=== PATIENT | female | born 2000 | race Caucasian/White ===

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

== ENCOUNTER 2019-02-27 07:36 | Outpatient (CLI) | payer SELFPAY ==
--- NOTE | 2019-02-27 08:24 | DI.US_ITS ---
SYMPTOM/DIAGNOSIS: CHRONIC NAUSEA R11.0, EPIGASTRIC PAIN R10.13 ABDOMINAL ULTRASOUND: The aorta and vena cava are intact. The liver is top limits of normal in size at 16.7 cm, and is mildly echogenic consistent with fatty infiltration. The gallbladder is intact. There are no gallstones or ductal dilatation. The pancreas is unremarkable. The spleen is mildly enlarged at 10.8 cm The kidneys are unremarkable. The right kidney measures 10.7 cm and the left kidney 10.7 cm. There is no evidence of free fluid. SUMMARY: Findings consistent with fatty infiltration of the liver and mild hepatosplenomegaly.
== END 2019-02-27 07:56 ==
PROVIDERS: PCP Nurse Practitioner; Visit Provider Family Medicine
DX: R11.0 Nausea (principal); R10.13 Epigastric pain; K76.1 Chronic passive congestion of liver; R16.2 Hepatomegaly with splenomegaly, not elsewhere classified
CPT/HCPCS: 76700

== ENCOUNTER 2019-03-09 02:13 | Outpatient (CLI) | payer BC, SELFPAY ==
--- NOTE | 2019-03-09 12:30 | DI.NM_ITS ---
SYMPTOMS/DIAGNOSIS: CHRONIC NAUSEA, R11.0, ABDOMINAL PAIN X 2 YEARS CCK-HEPATOBILIARY SCAN: 4.8 mCi of technetium 99m mebrofenin were administered IV. There is normal hepatic uptake. There is prompt excretion into the gallbladder. The small bowel is also promptly visualized. 1.7 mcg of Kinevac was administered over 45 minutes via IV drip. The gallbladder ejection fraction is calculated at 64%, in the normal range. IMPRESSION: Normal CCK-hepatobiliary scan.
== END 2019-03-09 02:33 ==
PROVIDERS: PCP Nurse Practitioner; Visit Provider Family Medicine
DX: R11.0 Nausea (principal); R10.9 Unspecified abdominal pain
CPT/HCPCS: 78227

== ENCOUNTER 2019-07-27 17:43 | Outpatient (REF) | payer MEDICAID, SELFPAY | END 2019-07-27 18:03 | LOC: LBN 17:43 | PROVIDERS: PCP Nurse Practitioner; Visit Provider Obstetrics & Gynecology | DX: R69 Illness, unspecified (principal) | CPT/HCPCS: 87491; 87591 ==

== ENCOUNTER 2019-08-03 01:46 | Outpatient (CLI) | payer MEDICAID, SELFPAY ==
--- NOTE | 2019-08-03 12:52 | DI.US_ITS ---
EXAM: US PELVIS TRANSVAGINAL CLINICAL HISTORY: Irregular bleeding,92.6 TECHNIQUE: Ultrasound performed using standard protocol. COMPARISON: No exams were available for comparison FINDINGS: The uterus measures 5.8 cm in length, 3.0 cm in height and 3.7 cm in width with an endometrial stripe thickness of 2.9 mm. A small quantity of free fluid is identified in the cervix. The right ovary m easures 2.3 x 1.4 x 1.2 cm. The left ovary was not visualized. The left kidney measures 10.7 x 4.7 x 4.4 cm, the right kidney measures 10.9 x 4.1 x 4.9 cm. IMPRESSION: Small quantity of fluid is noted in the cervix. The examination is otherwise unremarkable with note m deepa of nonvisualization of the left ovary.
== END 2019-08-03 02:06 ==
PROVIDERS: PCP Nurse Practitioner; Visit Provider Obstetrics & Gynecology
DX: N92.6 Irregular menstruation, unspecified (principal); N88.8 Other specified noninflammatory disorders of cervix uteri
CPT/HCPCS: 76830; 76856

== ENCOUNTER 2020-07-04 16:54 | Outpatient (REF) | payer MEDICAID, SELFPAY ==
[2020-07-04 23:53] LABS: C-Reactive Protein 1.37 mg/dL (0.0-0.3)
[2020-07-05 00:08] LABS: ESR 13 mm/hr (0-20)
[2020-07-06 17:36] LABS: Rheumatoid Factor <8.6 IU/mL (<12.0)
[2020-07-07 09:11] LABS: Vitamin D 25 Total 33.9 ng/ml (30-100)
[2020-07-07 09:13] LABS: Cyclic Citrullinated Peptide <2.5 U/mL (<5.0)
[2020-07-07 14:41] LABS: ANA Interpretation Negative (Negative)
== END 2020-07-04 17:14 ==
LOC: NCHCN 16:54
PROVIDERS: PCP Nurse Practitioner; Visit Provider Nurse Practitioner Family
DX: G89.29 Other chronic pain (principal); F41.9 Anxiety disorder, unspecified; F32.9 Major depressive disorder, single episode, unspecified
CPT/HCPCS: 82306; 85652; 86003; 86200; 86038; 86140; 86431

== ENCOUNTER 2020-07-08 14:13 | Outpatient (REF) | payer MEDICAID, SELFPAY ==
[2020-07-10 16:46] LABS: Chlamydia Result Negative (Negative); GC Result Negative (Negative)
== END 2020-07-08 14:33 ==
LOC: NCHCN 14:13
PROVIDERS: PCP Nurse Practitioner; Visit Provider Nurse Practitioner Family
DX: Z11.3 Encounter for screening for infections with a predominantly sexual mode of transmission (principal)
CPT/HCPCS: 87491; 87591

== ENCOUNTER 2020-09-11 18:40 | Outpatient (REF) | payer MEDICAID, SELFPAY | END 2020-09-11 19:00 | LOC: NCHCN 18:40 | PROVIDERS: PCP Nurse Practitioner Family; Visit Provider Nurse Practitioner Family | DX: N89.8 Other specified noninflammatory disorders of vagina (principal) | CPT/HCPCS: 87480; 87510; 87660 ==

== ENCOUNTER 2021-02-01 13:14 | Outpatient (CLI) | payer MEDICAID, SELFPAY ==
[2021-02-01 13:47] LABS: Bacteria Many HPF (Negative); C & S Indicated? No/Sq. Contamination; Casts Negative LPF (Negative); Crystals Negative HPF (Negative); Epithelial Cells Many HPF (Negative); Mucus Negative (Negative); Other Cells Few Renal (Negative); RBC 0-2 HPF (0-2); WBC Negative HPF (0-5)
== END 2021-02-01 13:15 | disposition home or self-care (01) ==
LOC: LBN 13:15
PROVIDERS: PCP Nurse Practitioner Family; Visit Provider Family Medicine
DX: R30.0 Dysuria (principal)
CPT/HCPCS: 81015

== ENCOUNTER 2021-03-13 15:21 | Outpatient (REF) | payer MEDICAID, SELFPAY | END 2021-03-13 15:22 | disposition home or self-care (01) | LOC: NCHCN 15:21 | PROVIDERS: PCP Nurse Practitioner Family; Visit Provider Nurse Practitioner Family | DX: R30.0 Dysuria (principal) | CPT/HCPCS: 87086 ==

== ENCOUNTER 2021-04-20 09:54 | Outpatient (REF) | payer MEDICAID, SELFPAY ==
--- NOTE | 2021-04-20 09:15 | PAPFT_PTH ---
PATIENT: Marlen Mendez [facility] U#:[id number] AGE/SX: 20/F ROOM: RE04/20/[address]: Thea Bobo : 2000 BED: DIS: 04/20/2021 SPEC #: [id number] RECD: 04/20/21 13:04 STATUS: BEHZAD BURTON #: [id number] GE: 04/20/21 09:[address]: Thea Bobo DEPT: [facility] Cytology RECD BY: Antonia Booker Tissues: 1 - CX/ENDOCX FOR PAP SMEARS Procedures: PAP THIN PREP/UVM Screening Comments: [id number] (CHLAMYDIA/GC)
[2021-04-21 14:01] LABS: Chlamydia Result Negative (Negative); GC Result Negative (Negative)
== END 2021-04-20 09:55 | disposition home or self-care (01) ==
LOC: NCHCN 09:54
PROVIDERS: PCP Nurse Practitioner Family; Visit Provider Nurse Practitioner Family
DX: Z12.4 Encounter for screening for malignant neoplasm of cervix (principal); Z01.419 Encounter for gynecological examination (general) (routine) without abnormal findings
CPT/HCPCS: 87491; 87591; 88142

== ENCOUNTER 2021-11-20 18:29 | Outpatient (REF) | payer MEDICAID, SELFPAY | END 2021-11-20 18:30 | disposition home or self-care (01) | LOC: NCHCN 18:29 | PROVIDERS: PCP Nurse Practitioner Family; Visit Provider Nurse Practitioner Family | DX: R39.15 Urgency of urination (principal) | CPT/HCPCS: 87077; 87086; 87186 ==

== ENCOUNTER 2021-12-04 12:18 | Outpatient (REF) | payer MEDICAID, SELFPAY ==
--- OUTSIDE RECORDS SUMMARY | 2021-12-04 12:21 | XMS_ITS ---
:2000 Author Care Team Providers Name Role Phone MARIANA BAH Primary Care Provider [phone] [facility] MEDICAL RECORDS OTHER [phone] Allergies Code Code System Name Reaction Severity Status Onset 6698 RxNorm Meclizine Other Mild to Active ? Moderate Medications Name Status Start Date Stop Date ? ? buspirone 7.5 mg tablet Active ? Not avai lable Take 1 tablet twice a day by oral route. citalopram 40 mg tablet Active ? Not avai lable Take 1 tablet every day by oral route. clindamycin phosphate 1 % topical solution Active ? Not available APPLY A THIN LAYER TO THE AFFECTED AREA(S) BY TOPICAL ROUTE 2 T IMES PER DAY Flonase Allergy Relief 50 mcg/actuation nasal spray,suspension A ctive ? Not available [place] 2 sprays every day by intranasal route. norgestimate 0.25 mg-ethinyl estradiol 35 mcg (21) tablet Active ? Not available Take 1 tablet every day by oral route. pantoprazole 20 mg tablet,delayed release Active ? Not available Take 1 tablet every day by oral route. Previfem Active ? Not available ProAir HFA 90 mcg/actuation aerosol inhaler Active ? Not available Inhale 2 puffs every 4 hours by inhalation route. Vitamin B-12 1,000 mcg tablet Active ? N ot available Take 1 tablet every day by oral route. Vitamin D Active ? Not available 2,000 units daily PO Zofran 4 mg tablet Active ? Not available Take 1 tablet every 8 hours by oral route. Problems Name Status Onset Date Source ? Chronic Pain Active 11/28/2020 ? Fibromyalgia Active 11/28/2020 ? Restless Legs Active 12/03/2020 ? Severe Obesity Active ? History Hypersomnia Active ? History Obstructive Sleep Apnea Syndrome Active ? ? Hallucinations Active ? History Snoring Active ? History Procedures None recorded. Results Lab Results None recorded. Past Encounters 12/03/2020 Obstructive Sleep Apnea Syndrome; Restle ss Legs Evelina Mendez NP: [address] [place] [phone], Ph. Social History Tobacco Smoking Status Never Smoker Vaccine List None recorded. Plan of Care Reminders Provider Appointments None ? ? recorded. Lab None ? ? recorded. Referral None ? ? recorded. Procedures None ? ? recorded. Surgeries None ? ? recorded. Imaging None ? ? recorded. Vitals 12/03/2020 02:30PM New Patient 44 Height Weight BMI 162.56 cm 127.01 kg 48.1 kg/m2 11/01/2017 Height Weight Blood Pressure 162.56 cm 108.41 kg 120/64 mm[Hg]
== END 2021-12-04 12:19 | disposition home or self-care (01) ==
LOC: NCHCN 12:18
PROVIDERS: PCP Nurse Practitioner Family; Visit Provider Nurse Practitioner Family
DX: R39.15 Urgency of urination (principal)
CPT/HCPCS: 87480; 87510; 87660

== ENCOUNTER 2021-12-08 17:26 | Outpatient (REF) | payer MEDICAID, SELFPAY | END 2021-12-08 17:27 | disposition home or self-care (01) | LOC: NCHCN 17:26 | PROVIDERS: PCP Nurse Practitioner Family; Visit Provider Nurse Practitioner Family | DX: R39.15 Urgency of urination (principal) | CPT/HCPCS: 87086 ==

== ENCOUNTER 2021-12-15 18:05 | Outpatient (REF) | payer MEDICAID, SELFPAY ==
[2021-12-15 15:40] LABS: HCT 43.1 % (36.0-46.0); HGB 13.3 g/dL (11.2-15.7); MCH 25.1 pg (27.0-33.0); MCHC 30.9 % (32.0-36.0); MCV 81.5 fL (80-95); MPV 10.9 fL (8.0-11.0); Platelet Count 382 10^3/uL (130-400); RBC 5.29 10^6/uL (3.93-5.22); RDW 13.9 % (11.7-14.6); RDW-SD 41.2 fL; WBC 9.27 10^3/uL (4.4-10.8)
[2021-12-15 16:14] LABS: ALT 57 U/L (14-59); AST 25 U/L (15-37); Albumin 3.7 g/dL (3.4-5.0); Alkaline Phosphatase 92 U/L (46-116); Anion Gap 7.6 mmol/L (3-11); BUN 16 mg/dL (7-18); Bilirubin, Total 0.4 mg/dL (0.2-1.0); CO2 29.4 mmol/L (21.0-32.0); CREATININE 0.9 mg/dL (0.55-1.02); Calcium 9.2 mg/dL (8.5-10.1); Chloride 103 mmol/L (98-107); Glucose 91 mg/dL (74-106); Potassium 4.4 mmol/L (3.5-5.1); Sodium 140 mmol/L (136-145); Total Protein 7.1 g/dL (6.4-8.2)
[2021-12-16 11:24] LABS: HIV-1/2 Ag & Ab Screen Negative (Negative)
[2021-12-16 11:34] LABS: Hepatitis C Ab w Rflx HCV PCR Negative (Negative)
[2021-12-17 13:53] LABS: Chlamydia Result Negative (Negative); GC Result Negative (Negative)
== END 2021-12-15 18:06 | disposition home or self-care (01) ==
LOC: NCHCN 18:05
PROVIDERS: PCP Nurse Practitioner Family; Visit Provider Nurse Practitioner Family
DX: R10.2 Pelvic and perineal pain (principal); Z11.3 Encounter for screening for infections with a predominantly sexual mode of transmission; Z11.4 Encounter for screening for human immunodeficiency virus [HIV]; Z11.59 Encounter for screening for other viral diseases
CPT/HCPCS: 80053; 85027; 86803; 87389; 87491; 87591; 87480; 87510; 87660

== ENCOUNTER 2021-12-16 09:42 | Outpatient (CLI) | payer MEDICAID, SELFPAY ==
--- NOTE | 2021-12-16 | DI.US_ITS ---
Exam(s) US PELVIS TRANSVAGINAL EXAM: US PELVIS TRANSVAGINAL CLINICAL HISTORY: IUD SURVEILLANCE, PELVIC PAIN, R10.2,Z30.431 TECHNIQUE: Transabdominal and transvaginal imaging was performed using standard protocol. COMPARISON: US US PELVIS TRANSVAGINAL from 08/03/2019 FINDINGS: KIDNEYS: Kidneys are symmetric in size. No evidence of renal calculi. No evidence of hydronephrosis. No renal mass or cyst identified. UTERUS: Anteverted. 6.7 x 2.8 x 3.7 cm. Endometrium: 6 millimeters. The IUD appears appropriately positioned within the endometrial cavity. Myometrium: Unremarkable. Cervix: Unremarkable. OVARIES: Right: Cyst or mass: None. Left: Cyst or mass: None. Left ovary suboptimally visualized due to location posterior to the uterus . DOPPLER: Color: Symmetric and uniform flow to both ovaries. No hyperemia. Duplex: Normal ovarian arterial waveforms visualized. CUL-DE-SAC: Free fluid: None. IMPRESSION: 1. Normal-appearing uterus with endometrial stripe within normal limits. IUD in place. 2. Unremarkable bilateral ovaries. DATA REPOSITORY:
== END 2021-12-16 10:02 ==
PROVIDERS: PCP Nurse Practitioner Family; Visit Provider Nurse Practitioner Family
DX: R10.2 Pelvic and perineal pain (principal); Z30.431 Encounter for routine checking of intrauterine contraceptive device
CPT/HCPCS: 76830; 76856

== ENCOUNTER 2021-12-23 16:07 | Outpatient (REF) | payer MEDICAID, SELFPAY | END 2021-12-23 16:08 | disposition home or self-care (01) | LOC: LBN 16:07 | PROVIDERS: PCP Nurse Practitioner Family; Visit Provider Nurse Practitioner Gerontology | DX: R39.15 Urgency of urination (principal); R10.2 Pelvic and perineal pain | CPT/HCPCS: 87077; 87086; 87186; 87480; 87510; 87660 ==

== ENCOUNTER → 2022-10-05 02:12 | Outpatient (CLI) | payer MEDICAID, SELFPAY ==
--- NOTE | 2022-10-05 10:45 | DI.US_ITS ---
Exam(s) US PELVIS TRANSVAGINAL EXAM: US PELVIS TRANSVAGINAL CLINICAL HISTORY: DUB, N93.8; PELVIC PAIN, R10.2; IUD SURVEILLANCE, Z30.431. TECHNIQUE: Transabdominal and transvaginal pelvic ultrasound was performed using standard protocol. COMPARISON: US US PELVIS TRANSVAGINAL from 12/16/2021 FINDINGS: KIDNEYS: Limited renal evaluation is unremarkable. UTERUS: Position: Anteverted. Size: 6.4 long by 3.0 AP by 4.5 transverse cm Endometrium: 0.7 cm. Normal for patient's menstrual status. There is an IUD which is in good position within the endometrial canal. Myometrium: Unremarkable. Cervix: Unremarkable. OVARIES: Right: 2.7 x 1.8 x 1.3 cm Cyst or mass: No suspicious cystic or solid masses. Left: 1.3 x 1 x 1.3 cm Cyst or mass: No suspicious cystic or solid masses. DOPPLER: Color: Symmetric and uniform flow to both ovaries. CUL-DE-SAC: Free fluid: None. Other: None. IMPRESSION: 1. Limited evaluation of the kidneys is unremarkable. 2. Normal-appearing uterus with endometrial stripe within normal limits. 3. IUD is in good position. 4. Unremarkable bilateral ovaries. DATA REPOSITORY:
== END ==
PROVIDERS: PCP Nurse Practitioner Family; Visit Provider Nurse Practitioner Family
DX: N93.8 Other specified abnormal uterine and vaginal bleeding (principal); R10.2 Pelvic and perineal pain; Z30.431 Encounter for routine checking of intrauterine contraceptive device
CPT/HCPCS: 76830; 76856

== ENCOUNTER 2022-10-26 13:30 | Outpatient (REF) | payer MEDICAID, SELFPAY ==
[2022-10-26 20:53] LABS: Abs Immature Grans 0.07 10^3/uL (0.0-0.06); Absolute Basophil Count 0.11 10^3/uL (0.0-0.2); Absolute Eosinophil Count 0.26 10^3/uL (0.0-0.7); Absolute Lymphocyte Count 3.39 10^3/uL (1.2-3.4); Absolute Neutrophil Count 5.51 10^3/uL (1.2-6.7); Basophils % 1.1; Eosinophils % 2.5; HCT 42.8 % (36.0-46.0); HGB 13.6 g/dL (11.2-15.7); Immature Grans % 0.7; Lymphocytes % 33.1; MCH 26.4 pg (27.0-33.0); MCHC 31.8 % (32.0-36.0); MCV 83 fL (80-95); MPV 10.5 fL (8.0-11.0); Monocytes % 8.8; Neutrophils % 53.8; Platelet Count 345 10^3/uL (130-400); RBC 5.15 10^6/uL (3.93-5.22); RDW 12.8 % (11.7-14.6); RDW-SD 38.6 fL; WBC 10.24 10^3/uL (4.4-10.8)
[2022-10-26 21:43] LABS: Ferritin 37 ng/mL (8-252); TSH (W/Ref FT4) 2.19 uIU/mL (0.36-3.74); Vitamin B12 569 pg/mL (193-986)
[2022-10-26 22:15] LABS: Iron 42 ug/dL (50-170); Total Iron Binding Capacity 357 ug/dL (250-450); Transferrin Sat 12 % (15-50)
== END 2022-10-26 13:31 | disposition home or self-care (01) ==
LOC: NCHCN 13:30
PROVIDERS: PCP Nurse Practitioner Family; Visit Provider Nurse Practitioner Family
DX: N93.9 Abnormal uterine and vaginal bleeding, unspecified (principal)
CPT/HCPCS: 82607; 82728; 83540; 83550; 84443; 85025

== ENCOUNTER 2023-11-03 17:34 | Outpatient (CLI) | payer OTHER, MEDICAID, SELFPAY ==
[2023-11-03 16:53] LABS: HCT 41.3 % (36.0-46.0); HGB 13.5 g/dL (11.2-15.7); MCH 26.7 pg (27.0-33.0); MCHC 32.7 % (32.0-36.0); MCV 82 fL (80-95); MPV 9.2 fL (8.0-11.0); Platelet Count 322 10^3/uL (130-400); RBC 5.05 10^6/uL (3.93-5.22); RDW 12.9 % (11.7-14.6); RDW-SD 38.4 fL; WBC 10.48 10^3/uL (4.4-10.8)
[2023-11-03 18:02] LABS: Iron 54 ug/dL (50-170); Total Iron Binding Capacity 340 ug/dL (250-450); Transferrin Sat 16 % (15-50)
[2023-11-03 18:04] LABS: ALT 69 U/L (14-59); AST 25 U/L (15-37); Albumin 3.5 g/dL (3.4-5.0); Alkaline Phosphatase 78 U/L (46-116); Anion Gap 5.6 mmol/L (3-11); BUN 14 mg/dL (7-18); Bilirubin, Total 0.4 mg/dL (0.2-1.0); CO2 32.4 mmol/L (21.0-32.0); CREATININE 0.9 mg/dL (0.55-1.02); Calcium 9.3 mg/dL (8.5-10.1); Chloride 103 mmol/L (98-107); Estimated GFR 92.12 (mL/min/1.73m2); Glucose 92 mg/dL (74-106); Potassium 3.8 mmol/L (3.5-5.1); Sodium 141 mmol/L (136-145); Total Protein 7.2 g/dL (6.4-8.2)
== END 2023-11-03 17:35 | disposition home or self-care (01) ==
LOC: LBO 17:34
PROVIDERS: PCP Nurse Practitioner Family; Visit Provider Nurse Practitioner Family
DX: L68.0 Hirsutism (principal); E61.1 Iron deficiency
CPT/HCPCS: 36415; 80053; 85027; 83540; 83550

== ENCOUNTER 2023-11-04 20:55 | Outpatient (REF) | payer MEDICAID, SELFPAY | END 2023-11-04 20:56 | disposition home or self-care (01) | LOC: NCHCN 20:55 | PROVIDERS: PCP Nurse Practitioner Family; Visit Provider Nurse Practitioner Family | DX: R30.0 Dysuria (principal) | CPT/HCPCS: 87086 ==

== ENCOUNTER 2024-09-19 02:01 | Outpatient (CLI) | payer OTHER, MEDICAID, SELFPAY ==
--- NOTE | 2024-09-19 | DI.US_ITS ---
Exam(s) US ABDOMEN EXAM: US ABDOMEN CLINICAL HISTORY: ABD PAIN, R10.9 TECHNIQUE: Ultrasound abdomen performed using standard protocol. COMPARISON: US US ABDOMEN from 02/27/2019 FINDINGS: ABDOMINAL AORTA AND IVC: Visualized portions normal caliber. PANCREAS: Normal where visualized. LIVER: There is diffuse increased echogenicity of the liver consistent with fatty infiltration. The liver measures 21 cm long. Hepatopetal flow in the Portal Vein. There is no evidence of a hepatic ma ss seen sonographically. GALLBLADDER:No evidence of cholelithiasis. No evidence of wall thickening. No pericholecystic fluid i dentified. BILIARY SYSTEM: Common bile duct measures < 7 mm. No intrahepatic biliary ductal dilation. PASCUAL'S SIGN: Negative. KIDNEYS: Kidneys are symmetric in size. No evidence of renal calculi. No evidence of hydronephrosis. No renal mass or cyst identified. SPLEEN: Not enlarged. ASCITES: None seen. IMPRESSION: Hepatomegaly and hepatic steatosis. DATA REPOSITORY:
== END 2024-09-19 02:21 ==
PROVIDERS: PCP Nurse Practitioner Family; Visit Provider Nurse Practitioner Family
DX: R16.0 Hepatomegaly, not elsewhere classified (principal); K76.0 Fatty (change of) liver, not elsewhere classified
CPT/HCPCS: 76700

== ENCOUNTER 2024-09-25 15:17 | Outpatient (REF) | payer OTHER, MEDICAID, SELFPAY ==
--- OUTSIDE RECORDS SUMMARY | 2024-09-25 15:18 | XMS_ITS | Referral Summary ---
Author Organization [facility] Address [address] [place] [id number] Care Team Providers Care Territory Account Manager Name Role Phone Thea Bobo RASHEED Primary Care Provider Medications No known medications Social History Tobacco Use Types Packs/Day Years Used Date Smoking Tobacco: Never Assessed Interpersonal Safety Answer Date Record ed Physically Hurt Never 06/16/2020 Verbally Threaten Not on file 06/16/2020 Comments Unknown Sex and Gender Information Value Date Recorded Sex Assigned at Not on file Legal Sex Female 15:17 EDT Gender Identity Female 08/19/2020 10:10 EDT Sexual Orientation Not on file Plan of Treatment Not on file Procedures Procedure Name Priority Date/Time Associated Diagnosis Comments HEPATITIS C AB W REFLEX TO HCV RNA BY PCR Routine 12/15/2021 11:05 EST from Last 3 Months or Most Recently Relevant to Health Maintenance Results * HEPATITIS C AB W REFLEX TO HCV RNA BY PCR (12/15/2021 11:05 EST) Hep C Antibody Negative Negative 12/16/2021 11:29 EST [facility] Blood VENOUS BLOOD / Unknown 12/15/2021 11:05 EST 12/15/2021 21:43 EST us Provider Outr Resulting Lab CHEMISTRY & BLOOD GA S ORDERABLES Final Result [facility] [address] [place] [address] from Last 3 Months or Most Recently Relevant to Health Maintenance Insurance MEDICAID [place] Care Teams Territory Account Manager Relationship Specialty Start Date End Date Thea Bobo FNP [address] [facility] [address] [place] [address] PCP - General 08/19/20
--- OUTSIDE RECORDS SUMMARY | 2024-09-25 15:18 | XMS_ITS | Encounter Summary ---
Author Organization [facility] Address [address] [place] [address] Care Team Providers Care Head Packager Name Role Phone Thea Bobo Primary Care Provider [phone] Reason for Visit * Reason Comments Chronic Pain * Referral (Routine) - Receiving Office to Obtain Authorization Specialty Diagnoses / Procedures Referred By Armaan savage Referred To Contact Rheumatology Diagnoses Other chronic pain Thea Bobo FNP [address] [facility] [address] [place] [address] Phone: tel: fax: [facility] Rheumatology & Immunology [address] [address] Phone: tel: fax: Referral ID Status Reason Start Date Expiration Date Visits Requested Visits Authorized [id number] Receiving Office to Obtain Authorization 1 1 Encounter Details Date Type Department Care Team (Late st Contact Info) Description 09/11/2020 13:20 EDT Telemedicine [facility] Rheumatology & Immunology [address] [id number] Francis Collier MD [address] [place] [address], [address] [place] [address] Chronic pain syndrome (Primary Dx) Social History Tobacco Use Types Packs/Day Years Used Date Smoking Tobacco: Never Assessed Interpersonal Safety Answer Date Record ed Physically Hurt Never 06/16/2020 Verbally Threaten Not on file 06/16/2020 Comments Unknown Sex and Gender Information Value Date Recorded Sex Assigned at Not on file Legal Sex Female 15:17 EDT Gender Identity Female 08/19/2020 10:10 EDT Sexual Orientation Not on file documented as of this encounter Progress Notes * Francis Collier MD - 09/11/2020 1320 EDT Division of Rheumatology and Clinical Immunology Televideo Note The concept of ???Telemedicine?? has been described to the patient.? Patient has been informed of the anticipated benefits and possible risks.? Patient understands the information provided regardingtelemedicine, has had the opportunity to ask questions about this information, and all questions have been answered to patient???s satisfaction. Patient consents for the use of telemedicine in his/her medical care and authorizes the transmission of any relevant medical information to providers and their staff involved in patient???s medical or mental health care. No chief complaint on file. HPI: No current outpatient medications on file. Allergies include: Patient has no allergy information on record. No past medical history on file. No past surgical history on file. No family history on file. Social History Socioeconomic History ??? Marital status: Single Spouse name: Not on file ??? Number of children: Not on file ??? Years of education: Not on file ??? Highest education level: Not on file Occupational History ??? Not on file Social Needs ??? Financial resource strain: Not on file ??? Food insecurity Worry: Not on file Inability: Not on file ??? Transportation needs Medical: Not on file Non-medical: Not on file Tobacco Use ??? Smoking status: Not on file Substance and Sexual Activity ??? Alcohol use: Not on file ??? Drug use: Not on file ??? Sexual activity: Not on file Lifestyle ??? Physical activity Days per week: Not on file Minutes per session: Not on file ??? Stress: Not on file Relationships ??? Social connections Talks on phone: Not on file Gets together: Not on file Attends sabianism service: Not on file Active member of club or organization: Not on file Attends meetings of clubs or organizations: Not on file Relationship status: Not on file ??? Intimate partner violence Fear of current or ex partner: Not on file Emotionally abused: Not on file Physically abused: Not on file Forced sexual activity: Not on file Other Topics Concern ??? Not on file Social History Narrative ??? Not on file PHYSICAL EXAMINATION: There were no vitals taken for this visit. No physical exam performed LABS Lab Requisition on 07/08/2020 Component Date Value ??? Gonococcus Result 07/08/2020 Negative ??? Chlamydia Result 07/08/2020 Negative Lab Requisition on 07/04/2020 Component Date Value ? ? CCP Antibodies 07/04/2020 <2.5 ??? ACOSTA Interpretation 07/04/2020 Negative ? ? Rheumatoid Factor 07/04/2020 <8.6 ??? Hold 07/04/2020 Hold ??? Hold 07/04/2020 Hold Imaging: Diagnosis / Assessment: Barriers to learning identified: No Patient verbalizes understanding and agrees with plan Yes I spent a total of 20 minutes with Marlen Mendez today and 12 minutes of that time was spent in counseling and coordination of care as described in the progress note. Francis Collier MD 09/09/2020 12:07 TELEMEDICINE VIDEO VISIT Today's visit was provided through telemedicine video conferencing: The location of the patient : Home The location of the provider: Office The following staff and their role did participate in today's encounter visit: Francis Collier MD Please note: This documentation was created with the use of voice recognition software, and may contain folding machine operator errors. Due to computer system disruption, additional clinical information for this visit is Scanned Note. For patients, please refer to guidance in Secret on how to locate information. Generally this information will appear as a scanned documents saved in My Documents activity. documented in this encounter Consult Notes * Francis Collier MD - 09/11/2020 1320 EDT [facility] RHEUMATOLOGY AND IMMUNOLOGY CONSULTATION - 09/11/[address] Bobo: I saw Marlen Mendez in the rheumatology clinic today by telemedicine for possible fibromyalgia. Asyou recall, she is a 19-year-old woman who has had full body pain since age 5. She describes this as pain in the muscles and not the joints with pain throughout the day. It is not particularly worse at any one part of the day. She has had no muscle atrophy. She has received physical therapy and acupuncture in the past, which helps transiently, but then the effect wears off. She gives no other connective tissue symptoms including no rashes, fever, adenopathy, oral ulcers or hair loss. She is nottaking any medications for this currently and has had no weight change. 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 She does not smoke. She drinks little, if any alcohol and she lives with her mother and sometimes with her boyfriend. Family history is notable with a grandmother with possible arthritis of uncertain etiology. Past Medical History: Notable for anxiety and depression for which she is taking Celexa and also she has GERD. She says that labs have been all normal and x-rays have been normal in the past. Since our electronic medical record is down today I could not check any other laboratory results. I had the patient gothrough a number joint maneuvers, which showed no signs of any joint swelling or lack of mobility. Similarly, there was no evidence of any hypermobility either. She then squeezed several muscle groups , which were very tender, particularly over the trapezius area. Assessment: Fibromyalgia. I see no evidence of any other underlying connective tissue disorder including no evidence of lupus or inflammatory arthritis. I do not see any need for any further laboratory tests at this time. I had a long discussion with the patient about her understanding about fibromyalgia and that the best course of therapy would be very active aquatics program. She enjoys swimming and is a good swimmer she says and will look for a place where she can get access to this and do it 2 to 3 times a week. I do not plan to see Marlen in person in the clinic, but told her should symptoms change, that we would be happy to talk with her again. Otherwise, I will leave her in your care. Thank you again for the opportunity to see Marlen Mendez, and please do not hesitate to contact mewith any questions you may have. Yours very truly, Francis Collier MD / LF/ Dictation ID: [id number] cc: Thea Perez, [facility] documented in this encounter Plan of Treatment Not on file documented as of this encounter Visit Diagnoses Diagnosis Chronic pain syndrome- Primary documented in this encounter Care Teams Head Packager Relationship Specialty Start Date End Date Thea Bobo FNP [address] [facility] [address] [place] [address] PCP - General 08/19/20 documented as of this encounter
--- OUTSIDE RECORDS SUMMARY | 2024-09-25 15:18 | XMS_ITS | Encounter Summary ---
Author Organization [facility] Address [address] [place] [address] Care Team Providers Care Railway Patrol Officer Name Role Phone Unknown, Provider Primary Care Provider Thea Jeffries Primary Care Provider [phone] Encounter Details Date Type Department Care Team (Late st Contact Info) Description 12/24/2019 Lab Requisition [facility] Pathology & Laboratory Medicine - [address] [address] Jose Cook MD [address] [address] Epigastric pain; Heartburn; Nausea; Irritable bowel syndrome with constipation Social History Tobacco Use Types Packs/Day Years Used Date Smoking Tobacco: Never Assessed Comments Unknown Sex and Gender Information Value Date Recorded Sex Assigned at Not on file Legal Sex Female 15:17 EDT Gender Identity Female 08/19/2020 10:10 EDT Sexual Orientation Not on file documented as of this encounter Plan of Treatment Not on file documented as of this encounter Procedures Procedure Name Priority Date/Time Associated Diagnosis Comments SURGICAL PATHOLOGY Today 12/24/2019 7:35 EST Epigastric pain documented in this encounter Results * SURGICAL PATHOLOGY (12/24/2019 7:35 EST) Final Diagnosis A. DUODENUM, BIOPSY: - Duodenal mucosa with no significant diagnostic abnormality. B. STOMACH, PRE-PYLORIC, BIOPSY: - Gastric antral mucosa with mild reactive (chemical) gastropathy. - Negative for Helicobacter pylori microorganisms on H&E stained sections. 12/25/2019 14:53 [facility] at 1453 Clinical History Reflux esophagitis due HH Diffuse mild gastritis Biopsies taken In bile duodenal atrophy? Biopsies taken R/O celiac 12/25/2019 14:53 [facility] Attestation By the signature below, the attending physician certifies that they have 1) personally conducted a gross and/or microscopic examination of the described specimen(s), and/or personally interpreted the results of laboratory testing of the described specimen(s), and 2) personally rendered or confirmed the above diagnosis. 12/25/2019 14:53 [facility] at 1453 Gross Description A. Received in formalin labelled with proper patient identification (initials M, T) and duodenum biopsies are 6 light davis biopsies ranging in size from 0.1 x 0.1 x 0.1 cm up to 0.6 x 0.2 x 0.1 cm. Submitted intact in A1-A2. B. Received in formalin labelled with proper patient identification (initials M, T) and pre pyloric biopsies are 5 light davis biopsies ranging in size from 0.2 x 0.2 x 0.1 cm up to 0.9 x 0.1 x 0.1 cm. Submitted intact in B1-B2. Neelima Stock 12/25/2019 08:10 12/25/2019 14:53 [facility] Scanned Images 12/25/2019 14:53 [facility] Tissue ENTIRE STOMACH / Unknown 12/24/2019 7:35 EST 12/24/2019 22:16 EST Tissue specimen (specimen) STOMACH STRUCTURE / Unknown 12/24/2019 7:35 EST 12/24/2019 22:16 EST us Jose Cook MD PATHOLOGY ORDERABLES Final R esult [facility] [address] [place] [address] documented in this encounter Visit Diagnoses Diagnosis Epigastric pain Abdominal pain, epigastric Heartburn Nausea Nausea alone Irritable bowel syndrome with constipation Irritable bowel syndrome documented in this encounter Care Teams Railway Patrol Officer Relationship Specialty Start Date End Date Unknown, Provider, PCP - General 07/03/18 08/18/20 Thea Bobo FNP [address] [address] PCP - General 08/19/20 documented as of this encounter
--- OUTSIDE RECORDS SUMMARY | 2024-09-25 15:18 | XMS_ITS | Encounter Summary ---
Author Organization [facility] Address [address] [place] [address] Care Team Providers Care Fermentologist Name Role Phone JeramieThea RASHEED Primary Care Provider [phone] Encounter Details Date Type Department Care Team (Late st Contact Info) Description 12/15/2021 Lab Requisition [facility] Pathology & Laboratory Medicine - [facility] [address] [place] [address] Outr Resulting Lab, Provider Social History Tobacco Use Types Packs/Day Years [...] Procedure Name Priority Date/Time Associated Diagnosis Comments HIV 1/2 ANTIGEN AND ANTIBODY, 4TH GENERATION Routine 12/15/2021 11:05 EST documented in this encounter Results * HIV 1/2 ANTIGEN AND ANTIBODY, 4TH GENERATION (12/15/2021 11:05 EST) HIV 1 and 2 Antibody/p24 Antigen, 4th Generation Negative Negative 12/16/2021 11:18 EST [facility] Comment:If acute HIV-1 infec tion is suspected in a high risk patient, submit plasma specimen for HIV-1 RNA quantitation test. Blood VENOUS BLOOD / Unknown 12/15/2021 11:05 EST 12/15/2021 21:43 EST Narrative [facility] - 12/16/2021 11:18 EST Fourth Generation assay performed on the Siemens SmartAssetaur XPT. us Provider Outr Resulting Lab IMMUNOLOGY AND SEROL OGY ORDERABLES Final Result [facility] [address] [place] [address] documented in this encounter Visit Diagnoses Not on filedocumented in this encounter Care Teams Fermentologist Relationship Specialty Start Date End Date Thea Bobo FNP [address] [place] [address] [address] [place] [phone] PCP - General 08/19/20 documented as of this encounter
--- OUTSIDE RECORDS SUMMARY | 2024-09-25 15:18 | XMS_ITS | Continuity of Care Document ---
Author Organization [facility] Address [address] [place] [address] Care Team Providers Care Summer Sessions Director Name Role Phone Thea Bobo Primary Care Physician Encounter [facility] [id number] Date(s): 05/29/24 - 05/29/24 [facility] [address] [place] [address] Discharge Disposition: Home Allergies, Adverse Reactions, Alerts Substance Reaction Severity Status meclizine Unknown Active Medications busPIRone 7.5 mg =, Oral, TID, 0 Refill(s) Start Date: 10/27/23 Status: Ordered DULoxetine 60 mg oral delayed release capsule 60 mg = 1 cap, Oral, Daily, do not crush or chew, 0 Refill(s) Start Date: 05/29/24 Status: Ordered Feosol 200 mg (65 mg elemental iron) oral tablet 200 mg = 1 tab, Oral, Mon/Tue/Fri, 0 Refill(s) Start Date: 05/29/24 Status: Ordered Flonase Allergy Relief 0 Refill(s) Start Date: 10/27/23 Status: Ordered lions geovanna extract lions geovanna extract, 0 Refill(s) Start Date: 05/29/24 Status: Ordered pantoprazole 20 mg =, Oral, Daily, 0 Refill(s) Start Date: 10/27/23 Status: Ordered ProAir HFA 0 Refill(s) Start Date: 10/27/23 Status: Ordered Vitamin B-12 100 mcg =, Oral, Daily, 0 Refill(s) Start Date: 10/27/23 Status: Ordered Zofran 0 Refill(s) Start Date: 10/27/23 Status: Ordered Problem List Condition Confirmation Course Effective Dates Status H ealth Status Informant Chronic pain Confirmed Active Fibromyalgia Confirmed Active Hallucinations Confirmed Active Hypersomnia Confirmed Active Obstructive sleep apnea syndrome Confirmed Active Restless legs Confirmed Active Snoring Confirmed Active Social History Social History Type Response Tobacco Never tobacco user T obacco Use:. Sex Female Patient Care team information Care Team Personnel Name: Thea Bobo Position: No Access Member Role: Primary Care Physician Address: Address: [address] [address]
--- OUTSIDE RECORDS SUMMARY | 2024-09-25 15:18 | XMS_ITS | Encounter Summary ---
Author Organization [facility] Address [address] [place] [address] Care Team Providers Care Clerk Specialist Name Role Phone Unknown, Provider Primary Care Provider Unava ilable Encounter Details Date Type Department Care Team (Latest Contact Info) Description 07/03/2018 14:57 EDT - 07/03/2018 23:59 EDT Hospital Encounter [address] [address] Unknown, Provider, Discharge Disposition: Home or Self Care Social History Tobacco Use Types Packs/Day Years Used Date Smoking Tobacco: Never Assessed Comments Unknown Sex and Gender Information Value Date Recorded Sex Assigned at Not on file Legal Sex Female 15:17 EDT Gender Identity Female 08/19/2020 10:10 EDT Sexual Orientation Not on file documented as of this encounter Discharge Disposition Disposition Code Departure Means Destination Home or Self Skilled Nursing documented in this encounter Plan of Treatment Not on file documented as of this encounter Visit Diagnoses Not on filedocumented in this encounter Care Teams Clerk Specialist Relationship Specialty Start Date End Date Unknown, Provider, PCP - General 07/03/18 08/18/20 documented as of this encounter
--- OUTSIDE RECORDS SUMMARY | 2024-09-25 15:18 | XMS_ITS | Encounter Summary ---
Author Organization [facility] Address [address] [place] [address] Care Team Providers Care Cargo Operations Agent Name Role Phone JeramieThea RASHEED Primary Care Provider [phone] Encounter Details Date Type Department Care Team (Late st Contact Info) Description 04/20/2021 Lab Requisition [facility] Pathology & Laboratory Medicine - [facility] [address] [place] [address] Outr Resulting Lab, Provider Social History Tobacco [...] Procedure Name Priority Date/Time Associated Diagnosis Comments CHLAMYDIA/N. GONORRHOEAE AMPLIFIED NUCLEIC ACID, THINPREP Routine 04/20/2021 9:15 EDT documented in this encounter Results * CHLAMYDIA/N. GONORRHOEAE AMPLIFIED RNA, THINPREP (04/20/2021 9:15 EDT) Neisseria gonorrhoeae Result Negative Negative 04/21/2021 13:56 EDT [facility] Chlamydia trachomatis Result Negative Negative 04/21/2021 13:56 EDT [facility] Papanicolaou smear specimen (specimen) CERVIX UTERI STRUCTURE / Unknown 04/20/2021 9:15 EDT 04/21/2021 7:58 EDT us Provider Outr Resulting Lab MICROBIOLOGY - GENER AL ORDERABLES Final Result [facility] [address] [place] [address] documented in this encounter Visit Diagnoses Not on filedocumented in this encounter Care Teams Cargo Operations Agent Relationship Specialty Start Date End Date Thea Bobo FNP [address] [facility] [address] [place] [phone] PCP - General 08/19/20 documented as of this encounter
--- OUTSIDE RECORDS SUMMARY | 2024-09-25 15:18 | XMS_ITS | Encounter Summary ---
Author Organization [facility] Address [address] [place] [address] Care Team Providers Care Psychology Teacher Name Role Phone JeramieThea RASHEED Primary Care Provider [phone] Encounter Details Date Type Department Care Team (Late st Contact Info) Description 12/15/2021 Lab Requisition [facility] Pathology & Laboratory Medicine - [facility] [address] [place] [address] Outr Resulting Lab, Provider Social History Tobacco [...] RNA BY PCR Routine 12/15/2021 11:05 EST documented in this encounter Results * HEPATITIS C AB W REFLEX TO HCV RNA BY PCR (12/15/2021 11:05 EST) Hep C Antibody Negative Negative 12/16/2021 11:29 EST [facility] Blood VENOUS BLOOD / Unknown 12/15/2021 11:05 EST 12/15/2021 21:43 EST us Provider Outr Resulting Lab CHEMISTRY & BLOOD GA S ORDERABLES Final Result [facility] [address] [place] [address] documented in this encounter Visit Diagnoses Not on filedocumented in this encounter Care Teams Psychology Teacher Relationship Specialty Start Date End Date Thea Bobo FNP [address] [facility] [address] [place] [phone] PCP - General 08/19/20 documented as of this encounter
--- OUTSIDE RECORDS SUMMARY | 2024-09-25 15:18 | XMS_ITS | Encounter Summary ---
Author Organization [facility] Address [address] [place] [address] Care Team Providers Care Research Anthropologist Name Role Phone Unknown, Provider Primary Care Provider Unabrianna ilable Encounter Details Date Type Department Care Team (Late st Contact Info) Description 07/03/2018 Results Only [facility] [phone] Jorge Mccain MD [address] [place] [phone] Social History Tobacco Use Types Packs/Day Years [...] Priority Date/Time Associated Diagnosis Comments SURGICAL PATHOLOGY Routine 07/03/2018 22 :10 EDT documented in this encounter Results * SURGICAL PATHOLOGY (07/03/2018 22:10 EDT) Pathology Report: SURGICAL PATHOLOGY REPORT Reports generated via electronic interface contain original data; however they are lacking the format of the original report. Caution should be taken when reading/interpret ing unformatted reports. Name: ? MARLEN CALVILLO ? Accession #: ? [id number] ? : ? 2000 (Age: 17) ??F ? Collect Date: ? 07/03/2018 ? Location: ? [facility] ? Receive Date: ? 07/03/2018 ? Provider: JORGE MCCAIN MD Copy to: MOUSTAPHA PEREZ MD ? Final Pathologic Diagnosis: A. TONSIL, RIGHT AND ADENOIDS, TONSILLECTOMY AND ADENOIDECTOMY: - Tonsillar and adenoid tissue with reactive lymphoid follicular hyperplasia. B. TONSIL, LEFT, TONSILLECTOMY: - Reactive lymphoid follicular hyperplasia. Document reviewed and electronically signed by: SALBADOR BARNHART MD Report ??Date: 07/06/2018 17:35 By the signature above, the attending physician certifies that he/she has personally conducted a gross and/or microscopic examination of the described specimens and rendered or confirmed the above diagnosis. Specimen(s) Received: A. ??Adenoids, right tonsil B. ??Left tonsil Clinical History: T+A hypertrophy; clinical diagnosis code: ??J35.3, G47.33, R09.81 Gross Description: A. ?Received in formalin labelled with proper patient identification (initials M, T) and adenoids, right tonsil is a palatine tonsil (3.5 x 2.3 x 1.6 cm). Also submitted is an ovoid portion of lymphoid tissue (2.4 x 2.1 x 1.3 cm). The mucosal surfaces are smooth and glistening with prominent crypts. Serial sections reveal lobular homogeneous tissue without abnormality. A patient financial representative section of each specimen is submitted in A1. B. ?Received in formalin labelled with proper patient identification (initials M, T) and left tonsil is a palatine tonsil (4.3 x 2.6 x 2.2 cm). The mucosa is smooth and glistening with prominent crypts. Serial sections reveal lobular homogeneous tissue without abnormality. A patient financial representative section is submitted as B1. JULIO C Ramon (ASCP) 07/04/2018 10:21 AM End of Report [facility] 07/03/2018 22:1 0 EDT 07/03/2018 22:10 EDT us Jorgediana Mccain MD PATHOLOGY ORDERABLES Final Resul t [facility] [address] [place] [address] documented in this encounter Visit Diagnoses Not on filedocumented in this encounter Care Teams Research Anthropologist Relationship Specialty Start Date End Date Unknown, Provider, PCP - General 07/03/18 08/18/20 documented as of this encounter
--- OUTSIDE RECORDS SUMMARY | 2024-09-25 15:18 | XMS_ITS | Encounter Summary ---
Author Organization [facility] Address [address] [place] [address] Care Team Providers Care Packaging Machine Supplies Distributor Name Role Phone Thea Bobo Primary Care Provider [phone] Encounter Details Date Type Department Care Team (Latest Contact Info) Description 04/21/[address] [facility] Pathology & Laboratory Medicine - [facility] [address] [place] [address] Thea Bobo FNP [address] [facility] [address] [place] [phone] Encounter for general adult medical examination without abnormal findings; Encounter for screening for malignant neoplasm of cervix; Encounter for gynecological examination (general) (routine) without abnormal findings Social History Tobacco Use Types Packs/Day Years [...] Procedure Name Priority Date/Time Associated Diagnosis Comments PAP TEST Today 04/20/2021 9:15 EDT Encounter for general adult medical examination without abnormal findings Encounter for screening for malignant neoplasm of cervix Encounter for gynecological examination (general) (routine) without abnormal findings documented in this encounter Results * PAP TEST (04/20/2021 9:15 EDT) Specimens A. Cervix and/or Endocervix , ThinPrep Imaging System with Manual Evaluation 04/30/2021 16:04 EDT [facility] Specimen Adequacy Satisfactory for Evaluation - transformation zone component present 04/30/2021 16:04 EDT [facility] General Categorization Negative for intraepithelial lesion or malignancy 04/30/2021 16:04 EDT [facility] Attestation . 04/30/2021 16:04 EDT [facility] at 1604 Clinical History See below 04/30/20 16:04 EDT [facility] Performing Lab [facility] 04/30/2021 16:04 EDT [facility] Scanned Images 04/30/2021 16:04 EDT [facility] Papanicolaou smear specimen (specimen) CERVIX UTERI STRUCTURE / Unknown 04/20/2021 9:15 EDT 04/21/2021 14:55 EDT Thea IQBAL PATHOLOGY ORDERABLES Final Resul t [facility] [address] [place] [address] documented in this encounter Visit Diagnoses Diagnosis Encounter for general adult medical examination without abnormal findings Unspecified general medical examination Encounter for screening for malignant neoplasm of cervix Screening for malignant neoplasm of the cervix Encounter for gynecological examination (general) (routine) without abnormal findings documented in this encounter Care Teams Packaging Machine Supplies Distributor Relationship Specialty Start Date End Date Thea Bobo FNP [address] [place] [address] [address] [place] [phone] PCP - General 08/19/20 documented as of this encounter
--- OUTSIDE RECORDS SUMMARY | 2024-09-25 15:18 | XMS_ITS | Encounter Summary ---
Author Organization [facility] Address [address] [place] [address] Care Team Providers Care Sheet Rock Taper Name Role Phone Unknown, Provider Primary Care Provider Thea Jeffries Primary Care Provider [phone] Encounter Details Date Type Department Care Team (Late st Contact Info) Description 07/09/2020 Lab Requisition [facility] Pathology & Laboratory Medicine - [address] [address] Outr Resulting Lab, Provider Social History Tobacco [...] Associated Diagnosis Comments CHLAMYDIA/N. GONORRHOEAE AMPLIFIED NUCLEIC ACID Routine 07/08/2020 13:30 EDT documented in this encounter Results * CHLAMYDIA/N. GONORRHOEAE AMPLIFIED RNA (07/08/2020 13:30 EDT) Neisseria gonorrhoeae Result Negative Negative 07/10/2020 16:24 EDT [facility] Chlamydia trachomatis Result Negative Negative 07/10/2020 16:24 EDT [facility] Urine URINE / Unknown Urine Collect / Unknown 07/08/2020 13:30 EDT 07/09/2020 17:27 EDT Narrative [facility] - 07/10/2020 16:24 EDT A first catch urine specimen is acceptable for detection of Gonorrhea and Chlamydia, but might detect up to 10% fewer infections when compared with vaginal and endocervical swab samples. us Provider Outr Resulting Lab MICROBIOLOGY - GENER AL ORDERABLES Final Result [facility] [address] [place] [address] documented in this encounter Visit Diagnoses Not on filedocumented in this encounter Care Teams Sheet Rock Taper Relationship Specialty Start Date End Date Unknown, Provider, PCP - General 07/03/18 08/18/20 Thea Bobo FNP [address] [phone] PCP - General 08/19/20 documented as of this encounter
--- OUTSIDE RECORDS SUMMARY | 2024-09-25 15:18 | XMS_ITS | Encounter Summary ---
Author Organization [facility] Address [address] [place] [address] Care Team Providers Care Cab Station Attendant Name Role Phone Unknown, Provider Primary Care Provider Thea Jeffries Primary Care Provider [phone] Encounter Details Date Type Department Care Team (Late st Contact Info) Description 07/06/2020 Lab Requisition [facility] Pathology & Laboratory Medicine - [address] [address] Outr Resulting Lab, Provider Social History Tobacco [...] Procedure Name Priority Date/Time Associated Diagnosis Comments HOLD SST Today 07/04/2020 16:45 EDT HOLD SST Today 07/04/2020 16:45 EDT [facility] ANTIBODIES Today 07/04/2020 16:45 EDT RHEUMATOID FACTOR Today 07/04/2020 16: 45 EDT ANTI NUCLEAR AB (ACOSTA), IFA Today 07/04/2020 16:45 EDT documented in this encounter Results * HOLD SST (07/04/2020 16:45 EDT) Hold Hold 07/06/2020 18:16 EDT [facility] Blood VENOUS BLOOD / Unknown 07/04/2020 16:45 EDT 07/06/2020 17:09 EDT us Provider Outr Resulting Lab LAB INFO SERVICE AND SUPPORT & PHONE RESULT Final Result [facility] [address] [place] [address] * HOLD SST (07/04/2020 16:45 EDT) Hold Hold 07/06/2020 18:16 EDT [facility] Blood VENOUS BLOOD / Unknown 07/04/2020 16:45 EDT 07/06/2020 17:09 EDT us Provider Outr Resulting Lab LAB INFO SERVICE AND SUPPORT & PHONE RESULT Final Result [facility] [address] [place] [address] * RHEUMATOID FACTOR (07/04/2020 16:45 EDT) [facility] Rheumatoid Factor <8.6 <12.0 IU/mL 07/06/2020 17:31 EDT [facility] Blood VENOUS BLOOD / Unknown 07/04/2020 16:45 EDT 07/06/2020 17:09 EDT us Provider Outr Resulting Lab CHEMISTRY & BLOOD GA S ORDERABLES Final Result [facility] [address] [place] [address] * ANTI NUCLEAR AB (ACOSTA), IFA (07/04/2020 16:45 EDT) [facility] ACOSTA Interpretation Negative Negative 2019 14:36 EDT [facility] Blood VENOUS BLOOD / Unknown 07/04/2020 16:45 EDT 07/06/2020 17:09 EDT Narrative [facility] - 07/07/2020 14:36 EDT Results were obtained with the INOVA NOVA Lite HEp-2 ACOSTA Kit by indirect immunofluorescence. us Provider Outr Resulting Lab IMMUNOLOGY AND SEROL OGY ORDERABLES Final Result Performing Organization Address City/[facility]/ZIP Co de Phone Number [facility] [address] [place] [address] * CCP ANTIBODIES (07/04/2020 16:45 EDT) CCP Antibodies <2.5 <5.0 U/mL 07/07/2020 9:09 EDT [facility] Blood VENOUS BLOOD / Unknown 07/04/2020 16:45 EDT 07/06/2020 17:09 EDT us Provider Outr Resulting Lab IMMUNOLOGY AND SEROL OGY ORDERABLES Final Result Performing Organization Address City/[facility] Co de Phone Number [facility] [address] [place] [address] documented in this encounter Visit Diagnoses Not on filedocumented in this encounter Care Teams Cab Station Attendant Relationship Specialty Start Date End Date Unknown, [place], PCP - General 07/03/18 08/18/20 Thea Bobo FNP [address] [phone] PCP - General 08/19/20 documented as of this encounter
--- OUTSIDE RECORDS SUMMARY | 2024-09-25 15:18 | XMS_ITS | Clinical Summary ---
Author Organization [facility] Address [address] [place] [address] Care Team Providers Care Patrol Commander Name Role Phone Thea Bobo RASHEED Primary Care Provider [phone] Medications No known medications Social History Tobacco [...] Orientation Not on file Plan of Treatment Health Maintenance Due Date Last Done Comments Hepatitis B Vaccine (1 of 3 - 19+ 3-dose series) 12/01 COVID-19 Vaccine ( season) 2023 Hepatitis C Screen Completed 12/15/2021 Procedures Procedure Name Priority Date/Time Associated Diagnosis Comments HEPATITIS C AB W REFLEX TO HCV RNA BY PCR Routine 12/15/2021 11:05 EST from Last 3 Months or Most Recently Relevant to Health Maintenance Results * HEPATITIS C AB W REFLEX TO HCV RNA BY PCR (12/15/2021 11:05 EST) Hep C Antibody Negative Negative 12/16/2021 11:29 EST [facility] Blood VENOUS BLOOD / Unknown 12/15/2021 11:05 EST 12/15/2021 21:43 EST us Provider Outr Resulting Lab CHEMISTRY & BLOOD GA S ORDERABLES Final Result [facility] [address] [place] [address] from Last 3 Months or Most Recently Relevant to Health Maintenance Insurance MEDICAID [place] Care Teams Patrol Commander Relationship Specialty Start Date End Date Thea Bobo FNP [address] [place] [address] [address] [place] [phone] PCP - General 08/19/20
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
--- OUTSIDE RECORDS SUMMARY | 2024-09-25 15:18 | XMS_ITS | Encounter Summary ---
Author Organization [facility] Address [address] [place] [address] Care Team Providers Care Cavity Pump Operator Name Role Phone JeramieThea RASHEED Primary Care Provider [phone] Encounter Details Date Type Department Care Team (Late st Contact Info) Description 12/16/2021 Lab Requisition [facility] Pathology & Laboratory Medicine - [facility] [address] [place] [address] Outr Resulting Lab, Provider Social History Tobacco [...] Comments CHLAMYDIA/N. GONORRHOEAE AMPLIFIED NUCLEIC ACID Routine 12/15/2021 11:00 EST documented in this encounter Results * CHLAMYDIA/N. GONORRHOEAE AMPLIFIED RNA (12/15/2021 11:00 EST) Neisseria gonorrhoeae Result Negative Negative 12/17/2021 13:48 EST [facility] Chlamydia trachomatis Result Negative Negative 12/17/2021 13:48 EST [facility] Swab ENTIRE VAGINA / Unknown 12/15/2021 11:00 EST 12/16/2021 16:05 EST us Provider Outr Resulting Lab MICROBIOLOGY - GENER AL ORDERABLES Final Result [facility] [address] [place] [address] documented in this encounter Visit Diagnoses Not on filedocumented in this encounter Care Teams Cavity Pump Operator Relationship Specialty Start Date End Date Thea Bobo FNP [address] [place] [address] [place] [phone] PCP - General 08/19/20 documented as of this encounter
[2024-09-25 21:06] LABS: Abs Immature Grans 0.21 10^3/uL (0.0-0.06); Absolute Basophil Count 0.09 10^3/uL (0.0-0.2); Absolute Monocyte Count 0.89 10^3/uL (0.1-0.8); Basophils % 0.8 %; Eosinophils % 7.1 %; HCT 42.8 % (36.0-46.0); HGB 14.1 g/dL (11.2-15.7); Immature Grans % 1.9 %; Lymphocytes % 30.9 %; MCHC 32.9 % (32.0-36.0); MCV 85 fL (80-95); MPV 9.8 fL (8.0-11.0); Monocytes % 7.9 %; Neutrophils % 51.4 %; Platelet Count 348 10^3/uL (130-400); RBC 5.03 10^6/uL (3.93-5.22); RDW 12.9 % (11.7-14.6); RDW-SD 39.2 fL; WBC 11.32 10^3/uL (4.4-10.8)
[2024-09-25 21:08] LABS: Absolute Neutrophil Count 5.82 10^3/uL (1.2-6.7)
[2024-09-25 21:27] LABS: ALT 102 U/L (14-59); AST 35 U/L (15-37); Albumin 3.6 g/dL (3.4-5.0); Alkaline Phosphatase 73 U/L (46-116); Anion Gap 10.5 mmol/L (3-11); BUN 15 mg/dL (7-18); Bilirubin, Total 0.36 mg/dL (0.2-1.0); CO2 26.5 mmol/L (21.0-32.0); CREATININE 0.9 mg/dL (0.55-1.02); Calcium 9.3 mg/dL (8.5-10.1); Chloride 107 mmol/L (98-107); Estimated GFR 91.55 (mL/min/1.73m2); Glucose 91 mg/dL (74-106); Sodium 144 mmol/L (136-145); TSH (W/Ref FT4) 2.44 uIU/mL (0.36-3.74); Total Protein 6.8 g/dL (6.4-8.2)
[2024-09-25 21:46] LABS: Hemoglobin A1C 5.4 % (<5.7)
[2024-09-26 18:48] LABS: Hepatitis A Antibody IgM Negative (Negative); Hepatitis B Core Antibody Negative (Negative); Hepatitis B surface Ag Negative (Negative); Hepatitis C Ab w Rflx HCV PCR Negative (Negative)
[2024-09-29 13:04] LABS: Tissue Transglutaminase Ab IgA <1.2 U/mL (<4.0); Tissue Transglutaminase Ab IgG 2.4 U/mL
== END 2024-09-25 15:18 | disposition home or self-care (01) ==
LOC: NCHCN 15:17
PROVIDERS: PCP Nurse Practitioner Family; Visit Provider Nurse Practitioner Family
DX: R19.7 Diarrhea, unspecified (principal); R79.89 Other specified abnormal findings of blood chemistry; E61.1 Iron deficiency; Z11.59 Encounter for screening for other viral diseases
CPT/HCPCS: 80053; 86704; 86709; 86803; 87340; 83036; 83516; 84443; 85025

== ENCOUNTER 2024-09-26 14:34 | Outpatient (REF) | payer OTHER, MEDICAID, SELFPAY ==
--- OUTSIDE RECORDS SUMMARY | 2024-09-26 14:35 | XMS_ITS | Clinical Summary ---
Author Organization [facility] Address [address] [place] [address] Care Team Providers Care Wash Tank Tender Name Role Phone JeramieThea RASHEED Primary Care Provider [phone] Medications No known medications Encounters Date Type Department Care Team Description 09/26/2024 Lab Requisition [facility] Pathology & Laboratory Medicine - [address] [address] Outr Resulting Lab, Provider from Last 3 Months Social History Tobacco Use Types Packs/Day Years [...] 3-dose series) 12/01 COVID-19 Vaccine ( season) 2024 Hepatitis C Screen Completed 12/15/2021 Procedures Procedure Name Priority Date/Time Associated Diagnosis Comments HEPATITIS C AB W REFLEX TO HCV RNA BY PCR Routine 12/15/2021 11:05 EST from Last 3 Months or Most Recently Relevant to Health Maintenance Results * HEPATITIS C AB W REFLEX TO HCV RNA BY PCR (12/15/2021 11:05 EST) Hep C Antibody Negative Negative 12/16/2021 11:29 EST [facility] Blood VENOUS BLOOD / Unknown 12/15/2021 11:05 EST 12/15/2021 21:43 EST us Provider Outr Resulting Lab CHEMISTRY & BLOOD GA S ORDERABLES Final Result [facility] [address] [place] [address] from Last 3 Months or Most Recently Relevant to Health Maintenance Insurance MEDICAID [place] Care Teams Wash Tank Tender Relationship Specialty Start Date End Date Thea Bobo FNP [address] [facility] [address] [place] [phone] PCP - General 08/19/20
--- OUTSIDE RECORDS SUMMARY | 2024-09-26 14:35 | XMS_ITS | Encounter Summary ---
Author Organization [facility] Address [address] [place] [address] Care Team Providers Care Food Inspector Name Role Phone JeramieThea RASHEED Primary Care Provider [phone] Encounter Details Date Type Department Care Team (Late st Contact Info) Description 12/16/[address] [facility] Pathology & Laboratory Medicine - [facility] [address] [place] [address] Outr Resulting Lab, Provider Social History Tobacco [...] gonorrhoeae Result Negative Negative 12/17/2021 13:48 EST [facility] Chlamydia trachomatis Result Negative Negative 12/17/2021 13:48 EST [facility] Swab ENTIRE VAGINA / Unknown 12/15/2021 11:00 EST 12/16/2021 16:05 EST us Provider Outr Resulting Lab MICROBIOLOGY - GENER AL ORDERABLES Final Result [facility] [address] [place] [address] documented in this encounter Visit Diagnoses Not on filedocumented in this encounter Care Teams Food Inspector Relationship Specialty Start Date End Date Thea Bobo FNP [address] [place] [address] [place] [phone] PCP - General 08/19/20 documented as of this encounter
--- OUTSIDE RECORDS SUMMARY | 2024-09-26 14:35 | XMS_ITS | Referral Summary ---
Author Organization [facility] Address [address] [place] [address] Care Team Providers Care Supply Tech Name Role Phone JeramieThea RASHEED Primary Care Provider [phone] Encounters Date Type Department Care Team Description 09/26/2024 Lab Requisition [facility] Pathology & Laboratory Medicine - [address] [address] Outr Resulting Lab, Provider from Last 3 Months Medications No known medications Social History Tobacco [...] C Antibody Negative Negative 12/16/2021 11:29 EST [facility] Blood VENOUS BLOOD / Unknown 12/15/2021 11:05 EST 12/15/2021 21:43 EST us Provider Outr Resulting Lab CHEMISTRY & BLOOD GA S ORDERABLES Final Result [facility] [address] [place] [address] from Last 3 Months or Most Recently Relevant to Health Maintenance Insurance MEDICAID [place] Care Teams Supply Tech Relationship Specialty Start Date End Date Thea Bobo FNP [address] [place] [address] [address] [place] [address] PCP - General 08/19/20
--- OUTSIDE RECORDS SUMMARY | 2024-09-26 14:35 | XMS_ITS | Encounter Summary ---
Author Organization [facility] Address [address] [place] [address] Care Team Providers Care Fancy Needleworker Name Role Phone Thea Bobo Primary Care Provider [phone] Encounter Details Date Type Department Care Team (Late st Contact Info) Description 09/26/2024 Lab Requisition [facility] Pathology & Laboratory Medicine - [facility] [address] [place] [address] Outr Resulting Lab, Provider Social History Tobacco [...] as of this encounter Plan of Treatment Scheduled Orders Name Type Priority Associated Diagnoses Orde r Schedule ACUTE HEPATITIS PROFILE Lab Routine O rdered: 09/26/2024 documented as of this encounter Visit Diagnoses Not on filedocumented in this encounter Care Teams Fancy Needleworker Relationship Specialty Start Date End Date Thea Bobo FNP [address] [place] [phone] PCP - General 08/19/20 documented as of this encounter
--- OUTSIDE RECORDS SUMMARY | 2024-09-26 14:36 | XMS_ITS | Encounter Summary ---
Author Organization [facility] Address [address] [place] [address] Care Team Providers Care Appeals Manager Name Role Phone JeramieThea RASHEED Primary Care Provider [phone] Encounter Details Date Type Department Care Team (Late st Contact Info) Description 12/15/2021 Lab Requisition [facility] Pathology & Laboratory Medicine - [facility] [address] [place] [address] Outr Resulting Lab, Provider Social History Tobacco [...] C Antibody Negative Negative 12/16/2021 11:29 EST [facility] Blood VENOUS BLOOD / Unknown 12/15/2021 11:05 EST 12/15/2021 21:43 EST us Provider Outr Resulting Lab CHEMISTRY & BLOOD GA S ORDERABLES Final Result [facility] [address] [place] [address] documented in this encounter Visit Diagnoses Not on filedocumented in this encounter Care Teams Appeals Manager Relationship Specialty Start Date End Date Thea Bobo FNP [address] [facility] [address] [place] [phone] PCP - General 08/19/20 documented as of this encounter
--- OUTSIDE RECORDS SUMMARY | 2024-09-26 14:36 | XMS_ITS | Encounter Summary ---
Author Organization [facility] Address [address] [place] [address] Care Team Providers Care District Court Justice Name Role Phone JeramieThea RASHEED Primary Care Provider [phone] Encounter Details Date Type Department Care Team (Late st Contact Info) Description 04/20/2021 Lab Requisition [facility] Pathology & Laboratory Medicine - [facility] [address] [place] [address] Outr Resulting Lab, Provider Social History Tobacco [...] gonorrhoeae Result Negative Negative 04/21/2021 13:56 EDT [facility] Chlamydia trachomatis Result Negative Negative 04/21/2021 13:56 EDT [facility] Papanicolaou smear specimen (specimen) CERVIX UTERI STRUCTURE / Unknown 04/20/2021 9:15 EDT 04/21/2021 7:58 EDT us Provider Outr Resulting Lab MICROBIOLOGY - GENER AL ORDERABLES Final Result [facility] [address] [place] [address] documented in this encounter Visit Diagnoses Not on filedocumented in this encounter Care Teams District Court Justice Relationship Specialty Start Date End Date Thea Bobo FNP [address] [facility] [address] [place] [phone] PCP - General 08/19/20 documented as of this encounter
--- OUTSIDE RECORDS SUMMARY | 2024-09-26 14:36 | XMS_ITS | Encounter Summary ---
Author Organization [facility] Address [address] [place] [address] Care Team Providers Care Billiard Table Repairer Name Role Phone Unknown, Provider Primary Care Provider Thea Jeffries Primary Care Provider [phone] Encounter Details Date Type Department Care Team (Late st Contact Info) Description 12/24/2019 Lab Requisition [facility] Pathology & Laboratory Medicine - [address] [address] Jose Cook MD [address] [address] Epigastric pain; Heartburn; Nausea; Irritable [...] microorganisms on H&E stained sections. 12/25/2019 14:53 [facility] at 1453 Clinical History Reflux esophagitis due HH Diffuse mild gastritis Biopsies taken In bile duodenal atrophy? Biopsies taken R/O celiac 12/25/2019 14:53 [facility] Attestation By the signature below, the attending physician certifies that they have 1) personally conducted a gross and/or microscopic examination of the described specimen(s), and/or personally interpreted the results of laboratory testing of the described specimen(s), and 2) personally rendered or confirmed the above diagnosis. 12/25/2019 14:53 [facility] at 1453 Gross Description A. [...] B1-B2. Neelima Stock 12/25/2019 08:10 12/25/2019 14:53 [facility] Scanned Images 12/25/2019 14:53 [facility] Tissue ENTIRE STOMACH / Unknown 12/24/2019 7:35 EST 12/24/2019 22:16 EST Tissue specimen (specimen) STOMACH STRUCTURE / Unknown 12/24/2019 7:35 EST 12/24/2019 22:16 EST us Jose Cook MD PATHOLOGY ORDERABLES Final R esult [facility] [address] [place] [address] documented in this encounter Visit Diagnoses Diagnosis Epigastric pain Abdominal pain, epigastric Heartburn Nausea Nausea alone Irritable bowel syndrome with constipation Irritable bowel syndrome documented in this encounter Care Teams Billiard Table Repairer Relationship Specialty Start Date End Date Unknown, Provider, PCP - General 07/03/18 08/18/20 Thea Bobo FNP [address] [phone] PCP - General 08/19/20 documented as of this encounter
--- OUTSIDE RECORDS SUMMARY | 2024-09-26 14:36 | XMS_ITS | Encounter Summary ---
Author Organization [facility] Address [address] [place] [address] Care Team Providers Care Retail Route Supervisor Name Role Phone Unknown, Provider Primary Care Provider Unava ilable Encounter Details Date Type Department Care Team (Latest Contact Info) Description 07/03/2018 14:57 EDT - 07/03/2018 23:59 EDT Hospital Encounter [address] [address] Unknown, Provider, Discharge Disposition: Home or Self [...] Code Departure Means Destination Home or Self Half-Way documented in this encounter Plan of Treatment Not on file documented as of this encounter Visit Diagnoses Not on filedocumented in this encounter Care Teams Retail Route Supervisor Relationship Specialty Start Date End Date Unknown, Provider, PCP - General 07/03/18 08/18/20 documented as of this encounter
--- OUTSIDE RECORDS SUMMARY | 2024-09-26 14:36 | XMS_ITS | Encounter Summary ---
Author Organization [facility] Address [address] [place] [address] Care Team Providers Care Tender Labor Name Role Phone Thea Bobo Primary Care Provider [phone] Reason for Visit * Reason Comments Chronic Pain * Referral (Routine) - Receiving Office to Obtain Authorization Specialty Diagnoses / Procedures Referred By Armaan savage Referred To Contact Rheumatology Diagnoses Other chronic pain Thea Bobo FNP [address] [facility] [address] [place] [address] Phone: tel: fax: [facility] Rheumatology & Immunology [address] [address] Phone: tel: fax: Referral ID Status Reason Start Date Expiration Date Visits Requested Visits Authorized [id number] Receiving Office to Obtain Authorization 1 1 Encounter Details Date Type Department Care Team (Late st Contact Info) Description 09/11/2020 13:20 EDT Telemedicine [facility] Rheumatology & Immunology [address] [address] Francis Collier MD [address] [place] [address], [address] [place] [address] Chronic pain syndrome (Primary Dx) [...] file Gets together: Not on file Attends hoahaoism service: Not on file Active member of [...] of voice recognition software, and may contain serials librarian errors. Due to computer system disruption, additional clinical information for this visit is Scanned Note. For patients, please refer to guidance in [place] on how to locate information. Generally this information will appear as a scanned documents saved in My Documents activity. 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 She does not smoke. She drinks little, [...] Francis Collier MD / LF/ Dictation ID: [id number] cc: Thea Perez, [facility] documented in this encounter Plan of Treatment Not on file documented as of this encounter Visit Diagnoses Diagnosis Chronic pain syndrome- Primary documented in this encounter Care Teams Tender Labor Relationship Specialty Start Date End Date Thea Bobo FNP [address] [facility] [address] [place] [address] PCP - General 08/19/20 documented as of this encounter
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
--- OUTSIDE RECORDS SUMMARY | 2024-09-26 14:36 | XMS_ITS | Encounter Summary ---
Author Organization [facility] Address [address] [place] [address] Care Team Providers Care Care Worker Name Role Phone JeramieThea RASHEED Primary Care Provider [phone] Encounter Details Date Type Department Care Team (Late st Contact Info) Description 12/15/2021 Lab Requisition [facility] Pathology & Laboratory Medicine - [facility] [address] [place] [address] Outr Resulting Lab, Provider Social History Tobacco [...] 4th Generation Negative Negative 12/16/2021 11:[address] [facility] Comment:If acute HIV-1 infec tion is suspected in a high risk patient, submit plasma specimen for HIV-1 RNA quantitation test. Blood VENOUS BLOOD / Unknown 12/15/2021 11:05 EST 12/15/2021 21:[address] [facility] - 12/16/2021 11:18 EST Fourth Generation assay performed on the Siemens CoFluent Designaur XPT. us Provider Outr Resulting Lab IMMUNOLOGY AND SEROL OGY ORDERABLES Final Result [facility] [address] [place] [address] documented in this encounter Visit Diagnoses Not on filedocumented in this encounter Care Teams Care Worker Relationship Specialty Start Date End Date Thea Bobo FNP [address] [place] [address] [address] [place] [phone] PCP - General 08/19/20 documented as of this encounter
--- OUTSIDE RECORDS SUMMARY | 2024-09-26 14:36 | XMS_ITS | Encounter Summary ---
Author Organization [facility] Address [address] [place] [address] Care Team Providers Care Leak Operator Paraffin Plant Name Role Phone Unknown, Provider Primary Care Provider Thea Jeffries Primary Care Provider [phone] Encounter Details Date Type Department Care Team (Late st Contact Info) Description 07/06/2020 Lab Requisition [facility] Pathology & Laboratory Medicine - [address] [address] Outr Resulting Lab, Provider Social History Tobacco [...] 16:45 EDT) Hold Hold 07/06/2020 18:16 EDT [facility] Blood VENOUS BLOOD / Unknown 07/04/2020 16:45 EDT 07/06/2020 17:09 EDT us Provider Outr Resulting Lab LAB INFO SERVICE AND SUPPORT & PHONE RESULT Final Result [facility] [address] [place] [address] * HOLD SST (07/04/2020 16:45 EDT) Hold Hold 07/06/2020 18:16 EDT [facility] Blood VENOUS BLOOD / Unknown 07/04/2020 16:45 EDT 07/06/2020 17:09 EDT us Provider Outr Resulting Lab LAB INFO SERVICE AND SUPPORT & PHONE RESULT Final Result [facility] [address] [place] [address] * RHEUMATOID FACTOR (07/04/2020 16:45 EDT) [facility] Rheumatoid Factor <8.6 <12.0 IU/mL 07/06/2020 17:31 EDT [facility] Blood VENOUS BLOOD / Unknown 07/04/2020 16:45 EDT 07/06/2020 17:09 EDT us Provider Outr Resulting Lab CHEMISTRY & BLOOD GA S ORDERABLES Final Result [facility] [address] [place] [address] * ANTI NUCLEAR AB (ACOSAT), IFA (07/04/2020 16:45 EDT) [facility] ACOSTA Interpretation Negative Negative 2019 14:36 EDT [facility] Blood VENOUS BLOOD / Unknown 07/04/2020 16:45 EDT 07/06/2020 17:09 EDT Narrative [facility] - 07/07/2020 14:36 EDT Results were obtained with the INOVA NOVA Lite HEp-2 ACOSTA Kit by indirect immunofluorescence. us Provider Outr Resulting Lab IMMUNOLOGY AND SEROL OGY ORDERABLES Final Result Performing Organization Address City/[facility]/ZIP Co de Phone Number [facility] [address] [place] [address] * CCP ANTIBODIES (07/04/2020 16:45 EDT) CCP Antibodies <2.5 <5.0 U/mL 07/07/2020 9:09 EDT [facility] Blood VENOUS BLOOD / Unknown 07/04/2020 16:45 EDT 07/06/2020 17:09 EDT us Provider Outr Resulting Lab IMMUNOLOGY AND SEROL OGY ORDERABLES Final Result Performing Organization Address City/[facility] Co de Phone Number [facility] [address] [place] [address] documented in this encounter Visit Diagnoses Not on filedocumented in this encounter Care Teams Leak Operator Paraffin Plant Relationship Specialty Start Date End Date Unknown, [place], PCP - General 07/03/18 08/18/20 Thea Bobo FNP [address] [phone] PCP - General 08/19/20 documented as of this encounter
--- OUTSIDE RECORDS SUMMARY | 2024-09-26 14:36 | XMS_ITS | Encounter Summary ---
Author Organization [facility] Address [address] [place] [address] Care Team Providers Care Lining Cutter Name Role Phone Thea Bobo Primary Care Provider [phone] Encounter Details Date Type Department Care Team (Latest Contact Info) Description 04/21/2021 Lab Requisition [facility] Pathology & Laboratory Medicine - [facility] [address] [place] [address] Thea Bobo FNP [address] [facility] [address] [place] [phone] Encounter for general adult medical examination without [...] System with Manual Evaluation 04/30/2021 16:04 EDT [facility] Specimen Adequacy Satisfactory for Evaluation - transformation zone component present 04/30/2021 16:04 EDT [facility] General Categorization Negative for intraepithelial lesion or malignancy 04/30/2021 16:04 EDT [facility] Attestation . 04/30/2021 16:04 EDT [facility] at 1604 Clinical History See below 04/30/20 16:04 EDT [facility] Performing Lab [facility] 04/30/2021 16:04 EDT [facility] Scanned Images 04/30/2021 16:04 EDT [facility] Papanicolaou smear specimen (specimen) CERVIX UTERI STRUCTURE / Unknown 04/20/2021 9:15 EDT 04/21/2021 14:55 EDT Thea IQBAL PATHOLOGY ORDERABLES Final Resul t [facility] [address] [place] [address] documented in this encounter Visit Diagnoses Diagnosis Encounter for general adult medical examination without abnormal findings Unspecified general medical examination Encounter for screening for malignant neoplasm of cervix Screening for malignant neoplasm of the cervix Encounter for gynecological examination (general) (routine) without abnormal findings documented in this encounter Care Teams Lining Cutter Relationship Specialty Start Date End Date Thea Bobo FNP [address] [place] [address] [address] [place] [phone] PCP - General 08/19/20 documented as of this encounter
--- OUTSIDE RECORDS SUMMARY | 2024-09-26 14:36 | XMS_ITS | Encounter Summary ---
Author Organization [facility] Address [address] [place] [address] Care Team Providers Care Welt Insole Channeler Name Role Phone Unknown, Provider Primary Care Provider Unabrianna ilable Encounter Details Date Type Department Care Team (Late st Contact Info) Description 07/03/2018 Results Only [facility] [phone] Jorge Mccain MD [address] [place] [phone] Social History Tobacco Use Types Packs/Day Years [...] ? MARLEN CALVILLO ? Accession #: ? [id number] ? : ? 2000 (Age: 17) ??F [...] reveal lobular homogeneous tissue without abnormality. A insurance healthcare representative section of each specimen is submitted in A1. B. ?Received in formalin labelled with proper patient identification (initials M, T) and left tonsil is a palatine tonsil (4.3 x 2.6 x 2.2 cm). The mucosa is smooth and glistening with prominent crypts. Serial sections reveal lobular homogeneous tissue without abnormality. A insurance healthcare representative section is submitted as B1. JULIO C Ramon (ASCP) 07/04/2018 10:21 AM End of Report [facility] 07/03/2018 22:1 0 EDT 07/03/2018 22:10 EDT us Jorgediana Mccain MD PATHOLOGY ORDERABLES Final Resul t [facility] [address] [place] [address] documented in this encounter Visit Diagnoses Not on filedocumented in this encounter Care Teams Welt Insole Channeler Relationship Specialty Start Date End Date Unknown, Provider, PCP - General 07/03/18 08/18/20 documented as of this encounter
--- OUTSIDE RECORDS SUMMARY | 2024-09-26 14:36 | XMS_ITS | Encounter Summary ---
Author Organization [facility] Address [address] [place] [address] Care Team Providers Care Cook Frozen Dessert Name Role Phone Unknown, Provider Primary Care Provider Thea Jeffries Primary Care Provider [phone] Encounter Details Date Type Department Care Team (Late st Contact Info) Description 07/09/2020 Lab Requisition [facility] Pathology & Laboratory Medicine - [address] [address] Outr Resulting Lab, Provider Social History Tobacco [...] gonorrhoeae Result Negative Negative 07/10/2020 16:24 EDT [facility] Chlamydia trachomatis Result Negative Negative 07/10/2020 16:24 EDT [facility] Urine URINE / Unknown Urine Collect / Unknown 07/08/2020 13:30 EDT 07/09/2020 17:27 EDT Narrative [facility] - 07/10/2020 16:24 EDT A first catch urine specimen is acceptable for detection of Gonorrhea and Chlamydia, but might detect up to 10% fewer infections when compared with vaginal and endocervical swab samples. us Provider Outr Resulting Lab MICROBIOLOGY - GENER AL ORDERABLES Final Result [facility] [address] [place] [address] documented in this encounter Visit Diagnoses Not on filedocumented in this encounter Care Teams Cook Frozen Dessert Relationship Specialty Start Date End Date Unknown, Provider, PCP - General 07/03/18 08/18/20 Thea Bobo FNP [address] [phone] PCP - General 08/19/20 documented as of this encounter
[2024-09-29 19:22] LABS: Calprotectin 150 mcg/g
== END 2024-09-26 14:35 | disposition home or self-care (01) ==
LOC: NCHCN 14:34
PROVIDERS: PCP Nurse Practitioner Family; Visit Provider Nurse Practitioner Family
DX: R19.7 Diarrhea, unspecified (principal)
CPT/HCPCS: 83630; 83993; 87177

== ENCOUNTER 2024-10-08 16:46 | Outpatient (REF) | payer OTHER, MEDICAID, SELFPAY ==
--- OUTSIDE RECORDS SUMMARY | 2024-10-08 16:49 | XMS_ITS | Encounter Summary ---
Author Organization [facility] Address [address] [place] [address] Care Team Providers Care Per Diem Interpreter Name Role Phone Unknown, Provider Primary Care Provider Unava ilable Encounter Details Date Type Department Care Team (Latest Contact Info) Description 07/03/2018 14:57 EDT - 07/03/2018 23:59 EDT Hospital Encounter [address] [address] Unknown, Provider, Discharge Disposition: Home or Self [...] Code Departure Means Destination Home or Self Fpc documented in this encounter Plan of Treatment Not on file documented as of this encounter Visit Diagnoses Not on filedocumented in this encounter Care Teams Per Diem Interpreter Relationship Specialty Start Date End Date Unknown, Provider, PCP - General 07/03/18 08/18/20 documented as of this encounter
--- OUTSIDE RECORDS SUMMARY | 2024-10-08 16:49 | XMS_ITS | Clinical Summary ---
Author Organization [facility] Address [address] [place] [address] Care Team Providers Care Ward Maid Name Role Phone JeramieThea RASHEED Primary Care Provider [phone] Medications No known medications Encounters Date Type Department Care Team Description 09/26/2024 Lab Requisition [facility] Pathology & Laboratory Medicine - [facility] [address] [place] [address] Outr Resulting Lab, Provider from Last 3 [...] Procedure Name Priority Date/Time Associated Diagnosis Comments ACUTE HEPATITIS PROFILE Routine 09/25/2024 12:30 EST HEPATITIS C AB W REFLEX TO HCV RNA BY PCR Routine 12/15/2021 11:05 EST from Last 3 Months or Most Recently Relevant to Health Maintenance Results * ACUTE HEPATITIS PROFILE (09/25/2024 12:30 EST) Hep B Surface Ag Negative Negative 09/26/2024 18:43 [facility] Hep C Antibody Negative Negative 09/26/2024 18:43 EST [facility] Hepatitis A Antibody, IgM Negative Negative 09/26/2024 18:43 [facility] Comment:The results of this assay can be falsely lowered due to the consumption of Biotin. Hepatitis B Core Ab, Total Negative Negative 09/26/2024 18:43 [facility] Blood VENOUS BLOOD / Unknown 09/25/2024 12:30 EST 09/26/2024 16:59 EST us Provider Outr Resulting Lab CHEMISTRY & BLOOD GA S ORDERABLES Final Result [facility] [address] [place] [address] * HEPATITIS C AB W REFLEX TO HCV RNA BY PCR (12/15/2021 11:05 EST) Hep C Antibody Negative Negative 12/16/2021 11:29 EST [facility] Blood VENOUS BLOOD / Unknown 12/15/2021 11:05 EST 12/15/2021 21:43 EST us Provider Outr Resulting Lab CHEMISTRY & BLOOD GA S ORDERABLES Final Result [facility] [address] [place] [address] from Last 3 Months or Most Recently Relevant to Health Maintenance Insurance MEDICAID [place] Care Teams Ward Maid Relationship Specialty Start Date End Date Thea Bobo FNP [address] [facility] [address] [place] [phone] PCP - General 08/19/20
--- OUTSIDE RECORDS SUMMARY | 2024-10-08 16:49 | XMS_ITS | Encounter Summary ---
Author Organization [facility] Address [address] [place] [address] Care Team Providers Care Armature Connector Name Role Phone Thea Bobo Primary Care Provider [phone] Reason for Visit * Reason Comments Chronic Pain * Referral (Routine) - Receiving Office to Obtain Authorization Specialty Diagnoses / Procedures Referred By Armaan savage Referred To Contact Rheumatology Diagnoses Other chronic pain Thea Bobo FNP [address] [facility] [address] [place] [address] Phone: tel: fax: [facility] Rheumatology & Immunology [address] [address] Phone: tel: fax: Referral ID Status Reason Start Date Expiration Date Visits Requested Visits Authorized [id number] Receiving Office to Obtain Authorization 1 1 Encounter Details Date Type Department Care Team (Late st Contact Info) Description 09/11/2020 13:20 EDT Telemedicine [facility] Rheumatology & Immunology [address] [id number] Francis Collier MD [address] [place] [address], [address] [place] [address] Chronic pain syndrome (Primary Dx) [...] file Gets together: Not on file Attends hinduism service: Not on file Active member of [...] of voice recognition software, and may contain residential door unit installer errors. Due to computer system disruption, additional clinical information for this visit is Scanned Note. For patients, please refer to guidance in Qubulus on how to locate information. 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 She does not smoke. She drinks little, [...] Francis Collier MD / LF/ Dictation ID: [id number] cc: Thea Perez, [facility] documented in this encounter Plan of Treatment Not on file documented as of this encounter Visit Diagnoses Diagnosis Chronic pain syndrome- Primary documented in this encounter Care Teams Armature Connector Relationship Specialty Start Date End Date Thea Bobo FNP [address] [facility] [address] [place] [address] PCP - General 08/19/20 documented as of this encounter
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
--- OUTSIDE RECORDS SUMMARY | 2024-10-08 16:49 | XMS_ITS | Encounter Summary ---
Author Organization [facility] Address [address] [place] [address] Care Team Providers Care High School English Teacher Name Role Phone JeramieThea RASHEED Primary Care Provider [phone] Encounter Details Date Type Department Care Team (Late st Contact Info) Description 04/20/2021 Lab Requisition [facility] Pathology & Laboratory Medicine - [facility] [address] [place] [address] Outr Resulting Lab, Provider Social History Tobacco [...] gonorrhoeae Result Negative Negative 04/21/2021 13:56 EDT [facility] Chlamydia trachomatis Result Negative Negative 04/21/2021 13:56 EDT [facility] Papanicolaou smear specimen (specimen) CERVIX UTERI STRUCTURE / Unknown 04/20/2021 9:15 EDT 04/21/2021 7:58 EDT us Provider Outr Resulting Lab MICROBIOLOGY - GENER AL ORDERABLES Final Result [facility] [address] [place] [address] documented in this encounter Visit Diagnoses Not on filedocumented in this encounter Care Teams High School English Teacher Relationship Specialty Start Date End Date Thea Bobo FNP [address] [facility] [address] [place] [phone] PCP - General 08/19/20 documented as of this encounter
--- OUTSIDE RECORDS SUMMARY | 2024-10-08 16:49 | XMS_ITS | Encounter Summary ---
Author Organization [facility] Address [address] [place] [address] Care Team Providers Care Small Business Banking Officer Name Role Phone JeramieThea RASHEED Primary Care Provider [phone] Encounter Details Date Type Department Care Team (Late st Contact Info) Description 09/26/2024 Lab Requisition [facility] Pathology & Laboratory Medicine - [address] [address] Outr Resulting Lab, Provider Social History Tobacco [...] ACUTE HEPATITIS PROFILE Routine 09/25/2024 12:30 EST documented in this encounter Results * ACUTE HEPATITIS PROFILE (09/25/2024 12:30 EST) Hep B Surface Ag Negative Negative 09/26/2024 18:43 EST [facility] Hep C Antibody Negative Negative 09/26/2024 18:43 EST [facility] Hepatitis A Antibody, IgM Negative Negative 09/26/2024 18:43 EST [facility] Comment:The results of this assay can be falsely lowered due to the consumption of Biotin. Hepatitis B Core Ab, Total Negative Negative 09/26/2024 18:43 EST [facility] Blood VENOUS BLOOD / Unknown 09/25/2024 12:30 EST 09/26/2024 16:59 EST us Provider Outr Resulting Lab CHEMISTRY & BLOOD GA S ORDERABLES Final Result Performing Organization Address City/State/[facility] Co de Phone Number [facility] [address] [place] [address] documented in this encounter Visit Diagnoses Not on filedocumented in this encounter Care Teams Small Business Banking Officer Relationship Specialty Start Date End Date Thea Bobo FNP [address] [place] [address] [address] [place] [address] PCP - General 08/19/20 documented as of this encounter
--- OUTSIDE RECORDS SUMMARY | 2024-10-08 16:49 | XMS_ITS | Encounter Summary ---
Author Organization [facility] Address [address] [place] [address] Care Team Providers Care Tobacco Stripping Machine Operator Name Role Phone Unknown, Provider Primary Care Provider Thea Jeffries Primary Care Provider [phone] Encounter Details Date Type Department Care Team (Late st Contact Info) Description 12/24/2019 Lab Requisition [facility] Pathology & Laboratory Medicine - [address] [address] Jose Cook MD [address] [address] Epigastric pain; Heartburn; Nausea; Irritable [...] microorganisms on H&E stained sections. 12/25/2019 14:53 [facility] at 1453 Clinical History Reflux esophagitis due HH Diffuse mild gastritis Biopsies taken In bile duodenal atrophy? Biopsies taken R/O celiac 12/25/2019 14:53 [facility] Attestation By the signature below, the attending physician certifies that they have 1) personally conducted a gross and/or microscopic examination of the described specimen(s), and/or personally interpreted the results of laboratory testing of the described specimen(s), and 2) personally rendered or confirmed the above diagnosis. 12/25/2019 14:53 [facility] at 1453 Gross Description A. [...] B1-B2. Neelima Stock 12/25/2019 08:10 12/25/2019 14:53 [facility] Scanned Images 12/25/2019 14:53 [facility] Tissue ENTIRE STOMACH / Unknown 12/24/2019 7:35 EST 12/24/2019 22:16 EST Tissue specimen (specimen) STOMACH STRUCTURE / Unknown 12/24/2019 7:35 EST 12/24/2019 22:16 EST us Jose Cook MD PATHOLOGY ORDERABLES Final R esult [facility] [address] [place] [address] documented in this encounter Visit Diagnoses Diagnosis Epigastric pain Abdominal pain, epigastric Heartburn Nausea Nausea alone Irritable bowel syndrome with constipation Irritable bowel syndrome documented in this encounter Care Teams Tobacco Stripping Machine Operator Relationship Specialty Start Date End Date Unknown, Provider, PCP - General 07/03/18 08/18/20 Thea Bobo FNP [address] [phone] PCP - General 08/19/20 documented as of this encounter
--- OUTSIDE RECORDS SUMMARY | 2024-10-08 16:49 | XMS_ITS | Encounter Summary ---
Author Organization [facility] Address [address] [place] [address] Care Team Providers Care Subgrade Tester Name Role Phone Unknown, Provider Primary Care Provider Thea Jeffries Primary Care Provider Encounter Details Date Type Department Care Team (Late st Contact Info) Description 07/06/2020 Lab Requisition [facility] Pathology & Laboratory Medicine - [address] [address] Outr Resulting Lab, Provider Social History Tobacco [...] 16:45 EDT) Hold Hold 07/06/2020 18:16 EDT [facility] Blood VENOUS BLOOD / Unknown 07/04/2020 16:45 EDT 07/06/2020 17:09 EDT us Provider Outr Resulting Lab LAB INFO SERVICE AND SUPPORT & PHONE RESULT Final Result [facility] [address] [place] [address] * HOLD SST (07/04/2020 16:45 EDT) Hold Hold 07/06/2020 18:16 EDT [facility] Blood VENOUS BLOOD / Unknown 07/04/2020 16:45 EDT 07/06/2020 17:09 EDT us Provider Outr Resulting Lab LAB INFO SERVICE AND SUPPORT & PHONE RESULT Final Result [facility] [address] [place] [address] * RHEUMATOID FACTOR (07/04/2020 16:45 EDT) [facility] Rheumatoid Factor <8.6 <12.0 IU/mL 07/06/2020 17:31 EDT [facility] Blood VENOUS BLOOD / Unknown 07/04/2020 16:45 EDT 07/06/2020 17:09 EDT us Provider Outr Resulting Lab CHEMISTRY & BLOOD GA S ORDERABLES Final Result [facility] [address] [place] [address] * ANTI NUCLEAR AB (ACOSTA), IFA (07/04/2020 16:45 EDT) [facility] ACOSTA Interpretation Negative Negative 2019 14:36 EDT [facility] Blood VENOUS BLOOD / Unknown 07/04/2020 16:45 EDT 07/06/2020 17:09 EDT Narrative [facility] - 07/07/2020 14:36 EDT Results were obtained with the INOVA NOVA Lite HEp-2 ACOSTA Kit by indirect immunofluorescence. us Provider Outr Resulting Lab IMMUNOLOGY AND SEROL OGY ORDERABLES Final Result Performing Organization Address City/[facility]/ZIP Co de Phone Number [facility] [address] [place] [address] * CCP ANTIBODIES (07/04/2020 16:45 EDT) CCP Antibodies <2.5 <5.0 U/mL 07/07/2020 9:09 EDT [facility] Blood VENOUS BLOOD / Unknown 07/04/2020 16:45 EDT 07/06/2020 17:09 EDT us Provider Outr Resulting Lab IMMUNOLOGY AND SEROL OGY ORDERABLES Final Result Performing Organization Address City/[facility] Co de Phone Number [facility] [address] [place] [address] documented in this encounter Visit Diagnoses Not on filedocumented in this encounter Care Teams Subgrade Tester Relationship Specialty Start Date End Date Unknown, [place], PCP - General 07/03/18 08/18/20 Thea Bobo FNP [address] [phone] PCP - General 08/19/20 documented as of this encounter
--- OUTSIDE RECORDS SUMMARY | 2024-10-08 16:49 | XMS_ITS | Encounter Summary ---
Author Organization [facility] Address [address] [place] [address] Care Team Providers Care Cider Maker Name Role Phone Thea Bobo Primary Care Provider [phone] Encounter Details Date Type Department Care Team (Latest Contact Info) Description 04/21/2021 Lab Requisition [facility] Pathology & Laboratory Medicine - [facility] [address] [place] [address] Thea Bobo FNP [address] [facility] [address] [place] [phone] Encounter for general adult medical examination without [...] System with Manual Evaluation 04/30/2021 16:04 EDT [facility] Specimen Adequacy Satisfactory for Evaluation - transformation zone component present 04/30/2021 16:04 EDT [facility] General Categorization Negative for intraepithelial lesion or malignancy 04/30/2021 16:04 EDT [facility] Attestation . 04/30/2021 16:04 EDT [facility] at 1604 Clinical History See below 04/30/20 16:04 EDT [facility] Performing Lab [facility] 04/30/2021 16:04 EDT [facility] Scanned Images 04/30/2021 16:04 EDT [facility] Papanicolaou smear specimen (specimen) CERVIX UTERI STRUCTURE / Unknown 04/20/2021 9:15 EDT 04/21/2021 14:55 EDT Thea IQBAL PATHOLOGY ORDERABLES Final Resul t [facility] [address] [place] [address] documented in this encounter Visit Diagnoses Diagnosis Encounter for general adult medical examination without abnormal findings Unspecified general medical examination Encounter for screening for malignant neoplasm of cervix Screening for malignant neoplasm of the cervix Encounter for gynecological examination (general) (routine) without abnormal findings documented in this encounter Care Teams Cider Maker Relationship Specialty Start Date End Date Thea Bobo FNP [address] [place] [address] [address] [place] [phone] PCP - General 08/19/20 documented as of this encounter
--- OUTSIDE RECORDS SUMMARY | 2024-10-08 16:49 | XMS_ITS | Encounter Summary ---
Author Organization [facility] Address [address] [place] [address] Care Team Providers Care Automatic Stacker Name Role Phone JeramieThea RASHEED Primary Care Provider [phone] Encounter Details Date Type Department Care Team (Late st Contact Info) Description 12/16/[address] [facility] Pathology & Laboratory Medicine - [facility] [address] [place] [address] Outr Resulting Lab, Provider Social History Tobacco [...] gonorrhoeae Result Negative Negative 12/17/2021 13:48 EST [facility] Chlamydia trachomatis Result Negative Negative 12/17/2021 13:48 EST [facility] Swab ENTIRE VAGINA / Unknown 12/15/2021 11:00 EST 12/16/2021 16:05 EST us Provider Outr Resulting Lab MICROBIOLOGY - GENER AL ORDERABLES Final Result [facility] [address] [place] [address] documented in this encounter Visit Diagnoses Not on filedocumented in this encounter Care Teams Automatic Stacker Relationship Specialty Start Date End Date Thea Bobo FNP [address] [place] [address] [place] [phone] PCP - General 08/19/20 documented as of this encounter
--- OUTSIDE RECORDS SUMMARY | 2024-10-08 16:49 | XMS_ITS | Encounter Summary ---
Author Organization [facility] Address [address] [place] [address] Care Team Providers Care Aircraft Electrical Systems Specialist Name Role Phone JeramieThea RASHEED Primary Care Provider [phone] Encounter Details Date Type Department Care Team (Late st Contact Info) Description 12/15/2021 Lab Requisition [facility] Pathology & Laboratory Medicine - [facility] [address] [place] [address] Outr Resulting Lab, Provider Social History Tobacco [...] 4th Generation Negative Negative 12/16/2021 11:18 EST [facility] Comment:If acute HIV-1 infec tion is suspected in a high risk patient, submit plasma specimen for HIV-1 RNA quantitation test. Blood VENOUS BLOOD / Unknown 12/15/2021 11:05 EST 12/15/2021 21:43 EST Narrative [facility] - 12/16/2021 11:18 EST Fourth Generation assay performed on the Siemens [employer] XPT. us Provider Outr Resulting Lab IMMUNOLOGY AND SEROL OGY ORDERABLES Final Result [facility] [address] [place] [address] documented in this encounter Visit Diagnoses Not on filedocumented in this encounter Care Teams Aircraft Electrical Systems Specialist Relationship Specialty Start Date End Date Thea Bobo FNP [address] [place] [address] [address] [place] [phone] PCP - General 08/19/20 documented as of this encounter
--- OUTSIDE RECORDS SUMMARY | 2024-10-08 16:49 | XMS_ITS | Encounter Summary ---
Author Organization [facility] Address [address] [place] [address] Care Team Providers Care Administrative Support Specialist Name Role Phone JeramieThea RASHEED Primary Care Provider [phone] Encounter Details Date Type Department Care Team (Late st Contact Info) Description 12/15/2021 Lab Requisition [facility] Pathology & Laboratory Medicine - [facility] [address] [place] [address] Outr Resulting Lab, Provider Social History Tobacco [...] C Antibody Negative Negative 12/16/2021 11:29 EST [facility] Blood VENOUS BLOOD / Unknown 12/15/2021 11:05 EST 12/15/2021 21:43 EST us Provider Outr Resulting Lab CHEMISTRY & BLOOD GA S ORDERABLES Final Result [facility] [address] [place] [address] documented in this encounter Visit Diagnoses Not on filedocumented in this encounter Care Teams Administrative Support Specialist Relationship Specialty Start Date End Date Thea Bobo FNP [address] [facility] [address] [place] [phone] PCP - General 08/19/20 documented as of this encounter
--- OUTSIDE RECORDS SUMMARY | 2024-10-08 16:49 | XMS_ITS | Encounter Summary ---
Author Organization [facility] Address [address] [place] [address] Care Team Providers Care Certification Officer Name Role Phone Unknown, Provider Primary Care Provider Thea Jeffries Primary Care Provider [phone] Encounter Details Date Type Department Care Team (Late st Contact Info) Description 07/09/2020 Lab Requisition [facility] Pathology & Laboratory Medicine - [address] [address] Outr Resulting Lab, Provider Social History Tobacco [...] gonorrhoeae Result Negative Negative 07/10/2020 16:24 EDT [facility] Chlamydia trachomatis Result Negative Negative 07/10/2020 16:24 EDT [facility] Urine URINE / Unknown Urine Collect / Unknown 07/08/2020 13:30 EDT 07/09/2020 17:27 EDT Narrative [facility] - 07/10/2020 16:24 EDT A first catch urine specimen is acceptable for detection of Gonorrhea and Chlamydia, but might detect up to 10% fewer infections when compared with vaginal and endocervical swab samples. us Provider Outr Resulting Lab MICROBIOLOGY - GENER AL ORDERABLES Final Result [facility] [address] [place] [address] documented in this encounter Visit Diagnoses Not on filedocumented in this encounter Care Teams Certification Officer Relationship Specialty Start Date End Date Unknown, Provider, PCP - General 07/03/18 08/18/20 Thea Bobo FNP [address] [phone] PCP - General 08/19/20 documented as of this encounter
--- OUTSIDE RECORDS SUMMARY | 2024-10-08 16:49 | XMS_ITS | Encounter Summary ---
Author Organization [facility] Address [address] [place] [address] Care Team Providers Care Fuselage Framer Name Role Phone Unknown, Provider Primary Care Provider Unabrianna ilable Encounter Details Date Type Department Care Team (Late st Contact Info) Description 07/03/2018 Results Only [facility] [phone] Jorge Mccain MD [address] [place] [phone] Social History Tobacco Use Types Packs/Day Years [...] ? MARLEN CALVILLO ? Accession #: ? [id number] ? : ? 2000 (Age: 17) ??F [...] reveal lobular homogeneous tissue without abnormality. A lifeline representatives section of each specimen is submitted in A1. B. ?Received in formalin labelled with proper patient identification (initials M, T) and left tonsil is a palatine tonsil (4.3 x 2.6 x 2.2 cm). The mucosa is smooth and glistening with prominent crypts. Serial sections reveal lobular homogeneous tissue without abnormality. A lifeline representatives section is submitted as B1. JULIO C Ramon (ASCP) 07/04/2018 10:21 AM End of Report [facility] 07/03/2018 22:1 0 EDT 07/03/2018 22:10 EDT us Jorgediana Mccain MD PATHOLOGY ORDERABLES Final Resul t [facility] [address] [place] [address] documented in this encounter Visit Diagnoses Not on filedocumented in this encounter Care Teams Fuselage Framer Relationship Specialty Start Date End Date Unknown, Provider, PCP - General 07/03/18 08/18/20 documented as of this encounter
--- OUTSIDE RECORDS SUMMARY | 2024-10-08 16:49 | XMS_ITS | Referral Summary ---
Author Organization [facility] Address [address] [place] [address] Care Team Providers Care Application Assistant Name Role Phone JeramieThea RASHEED Primary Care Provider [phone] Encounters Date Type Department Care Team Description 09/26/2024 Lab Requisition [facility] Pathology & Laboratory Medicine - [address] [address] Outr Resulting Lab, Provider from Last 3 [...] Surface Ag Negative Negative 09/26/2024 18:43 EST [facility] Hep C Antibody Negative Negative 09/26/2024 18:43 EST [facility] Hepatitis A Antibody, IgM Negative Negative 09/26/2024 18:43 EST [facility] Comment:The results of this assay can be falsely lowered due to the consumption of Biotin. Hepatitis B Core Ab, Total Negative Negative 09/26/2024 18:43 EST [facility] Blood VENOUS BLOOD / Unknown 09/25/2024 12:30 EST 09/26/2024 16:59 EST us Provider Outr Resulting Lab CHEMISTRY & BLOOD GA S ORDERABLES Final Result [facility] [address] [place] [address] * HEPATITIS C AB W REFLEX TO HCV RNA BY PCR (12/15/2021 11:05 EST) Hep C Antibody Negative Negative 12/16/2021 11:29 EST [facility] Blood VENOUS BLOOD / Unknown 12/15/2021 11:05 EST 12/15/2021 21:43 EST us Provider Outr Resulting Lab CHEMISTRY & BLOOD GA S ORDERABLES Final Result Performing Organization Address City/[facility] Co de Phone Number [facility] [address] [place] [address] from Last 3 Months or Most Recently Relevant to Health Maintenance Insurance MEDICAID [place] Care Teams Application Assistant Relationship Specialty Start Date End Date Thea Bobo FNP [address] [place] [address] [address] [place] [address] PCP - General 08/19/20
[2024-10-08 21:31] LABS: Amylase 39 U/L (25-115)
[2024-10-10 09:49] LABS: IgG 869 mg/dL (610-1616)
[2024-10-10 13:34] LABS: ANA Interpretation Negative (Negative)
[2024-10-13 11:35] LABS: Smooth Muscle Ab Screen Negative (Negative)
== END 2024-10-08 16:47 | disposition home or self-care (01) ==
LOC: NCHCN 16:46
PROVIDERS: PCP Nurse Practitioner Family; Visit Provider Nurse Practitioner Family
DX: R19.7 Diarrhea, unspecified (principal)
CPT/HCPCS: 82784; 82150; 86038; 86255

== ENCOUNTER 2025-02-13 15:22 | Outpatient (REF) | payer OTHER, MEDICAID, SELFPAY ==
[2025-02-13 21:07] LABS: HCT 43.1 % (36.0-46.0); HGB 13.7 g/dL (11.2-15.7); MCH 26.7 pg (27.0-33.0); MCHC 31.8 % (32.0-36.0); MCV 84 fL (80-95); MPV 10.4 fL (8.0-11.0); Platelet Count 359 10^3/uL (130-400); RBC 5.14 10^6/uL (3.93-5.22); RDW 12.8 % (11.7-14.6); RDW-SD 39.2 fL; WBC 10.03 10^3/uL (4.4-10.8)
[2025-02-13 21:23] LABS: Iron 30 ug/dL (50-170); Total Iron Binding Capacity 366 ug/dL (250-450)
[2025-02-13 21:29] LABS: Ferritin 42 ng/mL (8-252)
== END 2025-02-13 15:23 | disposition home or self-care (01) ==
LOC: NCHCN 15:22
PROVIDERS: PCP Nurse Practitioner Family; Visit Provider Nurse Practitioner Family
DX: R53.83 Other fatigue (principal)
CPT/HCPCS: 85027; 82728; 83540; 83550

== ENCOUNTER 2025-04-24 05:12 | Outpatient (CLI) | payer OTHER, MEDICAID, SELFPAY ==
--- NOTE | 2025-04-25 12:06 | TELEFU_ITS ---
Date of service: 04/24/25 Time of Service: 14:00 Nutrition Note NOTE: Marlen referred to nutrition visit to talk about weight management. She states this is the heaviest she has ever been. At [age] she last weight 154.58kg/340.75lbs with a BMI of 57.6 She currently lives with her fiance, mother, grandmother, brother. She finds exercise challenging, partly due to managing fibromyalgia, and affirms she does not sleep well and deals with a good deal of stress (the other pillars we di scussed that are important with weight mgt). Told her we would spend out time on nutrition but highlighted the other 3 pillars need attention and suggested light resistance training as tolerated, but any activity increases can be beneficial. Marlen works from home and has resources and food there to make meals, however shares that she tends to skip meals frequently. 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 She denies being a choosy eater and states she likes a large variety of foods. She takes a multimushroom blend supplement to help with fribromyalgia - no other dietary supps. Also has a lot of acid reflux concerns and stomach issues - endorses nausea, constipation, diarrhea and sometimes vomiting due to GI reactions to foods. Has tried Wygovy and did not tolerate. Between skipping meals and diet choices and would initially assess usual intake as lower in protein, low in fiber and higher in refined carbohydrates. Reviewed suggestions such as decrease in processed foods, increased in fiber gradually as tolerated with emphasis on soluble fiber, anti-inflammatory food choice pattern and aiming for at least 3 meals and maybe 3 meals and 0-2 planned snacks per day with emphasis on breakfast meals and getting large dose of protein soon after waking. Shared menu planning resources based off recommendations for macros, fiber, added sugar, saturated fat which she can continously edit with any goals such as starying away from common trigger foods, staying with low budget menus and can even ask it to have menus increase in fiber slowly over 2-3 weeks to fiber goal. Marlen has my contact info and will reach out with any need for more appts, resources. Time Spent in Nutritional Counseling and Treatment: 40 min
== END 2025-04-24 05:13 | disposition home or self-care (01) ==
LOC: DS 05:12
PROVIDERS: PCP Nurse Practitioner Family; Visit Provider Dietitian, Registered
DX: E66.9 Obesity, unspecified (principal)
CPT/HCPCS: 123; 97802; 00123

== ENCOUNTER 2025-04-30 20:21 | Emergency (ER) | payer OTHER, MEDICAID, SELFPAY ==
[2025-04-30 20:25] VITALS: BP 108/79; PULSE 100; RESP 20; TEMP 36.6; O2SAT 97
--- NOTE | 2025-04-30 21:05 | W.ED.GENAD ---
Discharge Plan Disposition Patient Disposition: Home Condition: Stable Discharge Details Clinical Impression: Cellulitis, Epidermoid cyst of skin of thigh Primary Care Provider: Thea Bobo ED Provider: Salena David Home Meds and New Rx's Prescriptions: New sulfamethoxazole-trimethoprim [Bactrim DS] 800-160 mg tablet 1 tab PO BID 7 Days Qty: 14 0RF cephalexin 500 mg capsule 500 mg PO QID 7 Days Qty: 28 0RF No Action albuterol sulfate [ProAir HFA] 90 mcg/actuation HFA aerosol inhaler 1 - 2 puff IH Q6H PRN ondansetron HCl [Zofran] 4 mg tablet 4 mg PO Q8H cholecalciferol (vitamin D3) 250 mcg (10,000 unit) capsule 250 mcg PO DAILY Mirena 20 mcg/24 hours (7 yrs) 52 mg intrauterine device 1 insert intrauterine ONCE Rx Instructions: as a single dose pantoprazole 20 mg tablet,delayed release (DR/EC) 20 mg PO DAILY buspirone 7.5 mg tablet 7.5 mg PO DAILY clindamycin phosphate 30 GM gel 1 appful Topical DAILY fluticasone propionate [Flonase Allergy Relief] 9.9 ML spray,suspension 1 spray IN DAILY duloxetine 60 mg capsule,delayed release(DR/EC) 60 mg PO DAILY Patient Comments: TAKE ONE CAPSULE BY MOUTH EVERY DAY pregabalin 150 mg capsule 150 mg PO BID Discharge Instructions Instructions: Epidermal Cyst (DC) Additional Instructions: You were seen in the ED for an infected cyst on your leg. In our department you had a full physical exam and an ultrasound that did not show an abscess that needs to be drained. You were started on 2 antibiotics, please take all of this medication until it is gone, even if you feel better. Please follow-up with your primary care provider in the next few days to discuss this visit and any symptoms that change, worsen, or persist. Thank you for allowing us to be part of your care. Stand Alone Forms: Work Release HPI General Mode of arrival: ambulatory. Date/Time Provider Initiated Documentation: 04/30/25 20:25. Limitations to Documentation: no limitations. Information obtained by: patient, family and old records reviewed. HPI Narrative: This is a 24-year-old female patient with a past medical history significant for fibromyalgia, hyperlipidemia, VELMA, who is presenting for evaluation of a cyst on the back of her thigh. She reports that this started 2 days ago, and she has noted worsening pain and discomfort. She states that the pain is worse when she tries to sit, and yesterday had a very long drive and felt that the cyst had opened up and started to drain. She is keeping it clean and dry and using colloid dressings on it. No specific trauma to the area, no fevers or chills, tolerating oral intake adequately. Related Data Home Medications ?Medication ?Instructions ?Recorded ?Confirmed clindamycin phosphate 1 % topical 1 appful topical DAILY 01/29/18 04/30/25 gel fluticasone propionate 50 1 spray IN DAILY 01/29/18 04/30/25 mcg/actuation nasal spray,suspension (Flonase Allergy Relief) albuterol sulfate 90 mcg/actuation 1 - 2 puff inhalation Q6H PRN 07/25/19 04/30/25 aerosol inhaler (ProAir HFA) ondansetron HCl 4 mg tablet 4 mg PO Q8H 07/25/19 04/30/25 (Zofran) buspirone 7.5 mg tablet 7.5 mg PO DAILY 12/21/21 04/30/25 levonorgestrel 21 mcg/24 hr (up to 1 insert intrauterine ONCE 12/21/21 04/30/25 8 years) 52 mg intrauterine device (Mirena) pantoprazole 20 mg tablet,delayed 20 mg PO DAILY 12/21/21 04/30/25 release cholecalciferol (vitamin D3) 250 250 mcg PO DAILY 12/23/21 04/30/25 mcg (10,000 unit) capsule cephalexin 500 mg capsule 500 mg PO QID 7 days #28 caps 04/30/25 duloxetine 60 mg capsule,delayed 60 mg PO DAILY 04/30/25 04/30/25 release pregabalin 150 mg capsule 150 mg PO BID Fibromyalgia 04/30/25 04/30/25 sulfamethoxazole 800 1 tab PO BID 7 days #14 tabs 04/30/25 mg-trimethoprim 160 mg tablet (Bactrim DS) Previous Rx's ?Medication ?Instructions ?Recorded cephalexin 500 mg capsule 500 mg PO QID 7 days #28 caps 04/30/25 sulfamethoxazole 800 1 tab PO BID 7 days #14 tabs 04/30/25 mg-trimethoprim 160 mg tablet (Bactrim DS) Allergies Allergy/AdvReac Type Severity Reaction Status Date / Time ibuprofen Allergy Intermediate Other (See Verified 04/30/25 20:29 Comment) kiwi Allergy Intermediate Itching Verified 04/30/25 20:29 meclizine Allergy Intermediate Other (See Verified 04/30/25 20:29 Comment) General Stated Complaint: RashLesion PIERRE: 4 Exam Narrative Exam Narrative: Gen: Awake and alert, in no apparent distress HEENT: Non-icteric sclera Neck: Supple Lungs: No apparent respiratory distress, normal respiratory effort. CV: Appears well perfused Abdomen: Non-distended MSK: Moves 4 extremities without apparent limitation in ROM Skin: Visualized skin without rashes, cyanosis. The patient does have 1/2 cm area of ulceration with serous drainage, and another 2 cm of surrounding induration, redness, and warmth. Neuro: Normal Gait, no obvious focal deficits or facial asymmetry. Speaks in full, clear sentences. Psych: Appropriate for situation. Course Vital Signs Vital signs: Vital Signs Temperature 36.6 C 04/30/25 20:25 Pulse 100 H 04/30/25 20:25 Respiratory Rate 20 04/30/25 20:25 Blood Pressure 108/79 04/30/25 20:25 Pulse Oximetry 97 04/30/25 20:25 Temperature 36.6 C 04/30/25 20:25 Pulse 100 H 04/30/25 20:25 Respiratory Rate 20 04/30/25 20:25 Blood Pressure 108/79 04/30/25 20:25 Blood Pressure Position Sitting 04/30/25 20:25 Pulse Oximetry 97 04/30/25 20:25 Oxygen Delivery Method Room Air 04/30/25 20:25 Oxygen Flow Rate 0 04/30/25 20:25 Procedure Abscess Drainage Provider that performed the procedure: Salena David Medical Decision Making This is a 24-year-old female patient presenting for evaluation of a cyst on the back of her right leg. My differential includes but is not limited to cellulitis, considered abscess though I note no significant fluid collection on my ultrasound nor fluctuance to suggest same. My bedside ultrasound did show heterogenous echogenic material, this may represent an epidermoid inclusion cyst. Reassuringly, the patient is systemically well, with no fevers to suggest systemic illness such as sepsis or bacteremia. Given the short duration of symptoms, and that this is actively draining, I feel that a course of outpatient antibiotics is reasonable to trial. I do not see indication to obtain advanced imaging or laboratory studies at this time. I did housing counselor the patient on allowing this to drain naturally, with warm compresses, good dressings, and [id number] antibiotic ointment. Given the drainage I did initiate dual antibiotics from and Keflex, and provided the patient with her first day's worth to take home as pharmacies are closed. Counseled her on outpatient pain management with Tylenol, as well as PCP follow-up. At this time, the patient has had a full medical evaluation and is safe for discharge to home. They are hemodynamically stable, ambulatory, and tolerating PO. They are understanding of the follow-up plan and return precautions. They left our facility without incident. Salena David MD d PFSH All Active Problems (Updated 04/30/25 @ 21:05 by Salena David MD) Epidermoid cyst of skin of thigh (Acute) Cellulitis (Acute) Unwanted fertility (Acute) 09/2022. Pt requests permanent sterilization. Presence of 52 mg levonorgestrel-releasing intrauterine device (IUD) (Acute) inserted 04/2021. Pt was amenorrheic after placement till 08/2022. Pelvic pressure in female (Acute) Chronic pain (Chronic) Depression (Chronic) Fibromyalgia (Acute) Restless leg syndrome (Acute) Urinary urgency (Acute) Dysmenorrhea (Acute) Pilonidal cyst without mention of abscess (Acute) History of menorrhagia (Acute) Seasonal allergies (Acute) Neck pain (Acute) Obesity (Chronic) 10/2022 BMI 49 Obstructive sleep apnea (Chronic) Acne vulgaris (Acute) Panic disorder (Acute) Family history of thyroid disease (Acute) Anxiety (Chronic) Hyperlipidemia (Acute) Chronic nausea (Acute) Abdominal pain, chronic, generalized (Acute) Medical History Esophagitis Hiatal hernia Pelvic pain Social History Smoking/Tobacco Use Status: Never Smoking risk assessment performed?: Yes Do you feel safe in your relationship?: Yes Female Reproductive History Menstrual Age of Menarche: 9 Duration of menses: 3-5 days control method: pills History History 0 Para Hx # Term Pregnancies Multiple births Hx # Pregnancies Ectopic pregnancies AB induced Hx Number of Living Children AB spontaneous POCUS Exam (ED) Limited Soft Tissue Exam DATE OF EXAM: 04/30/25 TIME OF EXAM: 20:56 PROVIDER THAT PERFORMED THE STUDY: Salena David LOCATION OF EXAM: Lower extremity/right REASON FOR EXAM: Pain, Redness and Swelling VISUALIZED STRUCTURES: Fascia, Skin and Subcutaneous tissue PERTINENT FINDINGS/IMPRESSION: Cellulitis posterior right thigh . Exam Complete
[2025-04-30 21:15] VITALS: BP 108/79; PULSE 100; RESP 20; TEMP 36.6; O2SAT 97
[2025-04-30] MEDS: Sulfameth/Trimeth DS, 2 TABS/BTL 1 TAB PO (21:16)
[2025-04-30] MEDS: Cephalexin 500 MG CAP, 4 CAPS/BTL PO (21:16)
== END 2025-04-30 21:16 | disposition home or self-care (01) ==
LOC: ER 21:06
PROVIDERS: Emergency Provider Emergency Medicine; PCP Nurse Practitioner Family
DX: L03.115 Cellulitis of right lower limb (principal); L72.8 Other follicular cysts of the skin and subcutaneous tissue; E78.5 Hyperlipidemia, unspecified
CPT/HCPCS: 76882; 99284; 99283

== ENCOUNTER 2025-08-20 12:49 | Outpatient (REF) | payer OTHER, MEDICAID, SELFPAY ==
--- NOTE | 2025-08-20 14:45 | PAPFT_PTH ---
PATIENT: Marlen Mendez LOC: [facility] U#:[id number] AGE/SX: 24/F ROOM: RE08/20/[address]: Thea Bobo : 2000 BED: DIS: 08/21/2025 SPEC #: [id number] RECD: 08/21/25 13:12 STATUS: BEHZAD RETea #: [id number] GE: 08/20/25 14:[address]: Thea Bobo DEPT: [facility] Cytology RECD BY: Antonia Booker Tissues: 1 - CX/ENDOCX FOR PAP SMEARS Procedures: PAP THIN PREP/UVM Screening Comments: [id number] (CHLAMYDIA/GC)
[2025-08-22 10:50] LABS: Chlamydia Result Negative (Negative); GC Result Negative (Negative)
== END 2025-08-21 11:53 | disposition home or self-care (01) ==
LOC: NCHCN 12:49
PROVIDERS: PCP Nurse Practitioner Family; Visit Provider Nurse Practitioner Family
DX: Z12.4 Encounter for screening for malignant neoplasm of cervix (principal)
CPT/HCPCS: 87491; 87591; 88142